=== PATIENT | male | born 1945 | race Caucasian/White ===

== ENCOUNTER → 2016-09-25 | Outpatient (CLI) | payer BC ==
[~2016-09-25] MED LIST: AMLO-114 PO; ASPI-232 PO; ATOR-26 PO; CHOL100010 PO; CLOP1TAB5 PO; CRG25 PO; FAMO20TA11 PO; HYDR25TA4 PO; LISI40TA PO; NITR0.4S UT; POTA10CA28 PO
== END | disposition home or self-care (01) ==
LOC: C.LABSPEC 12:36
PROVIDERS: ATTEND Internal Medicine
DX: Z12.11 Encounter for screening for malignant neoplasm of colon (principal)

== ENCOUNTER → 2017-01-24 | Outpatient (CLI) | payer BC ==
[2017-01-24 13:33] LABS: BASO % 0.2 %; BASO ABS # 0.02 K/uL (0-0.2); COMPLETE YES; HEMATOCRIT 40.1 % (42-52); IG% 0.2 %; LYMPH % 19.4 %; LYMPH ABS # 1.61 K/uL (1.2-3.4); MEAN CELL VOLUME 88.7 fL (80-100); MEAN CORPUSCULAR HEMOGLOBIN 30.1 pg (25-34); MEAN CORPUSCULAR HGB CONC 33.9 g/dl (32-36); MEAN PLATELET VOLUME 9.8 fL (7.4-10.4); MONO % 8.7 %; NEUT % 67.5 %; PLATELET COUNT 212 K/uL (130-400); RED BLOOD COUNT 4.52 M/uL (4.7-6.1)
[2017-01-24 14:02] LABS: ALKALINE PHOSPHATASE 111 U/L (45-117); ALT/SGPT 38 U/L (12-78); AST/SGOT 31 U/L (15-37); BLOOD UREA NITROGEN 32 mg/dl (7-18); BUN/CREATININE RATIO 15.9 (10-20); CALCIUM 9.1 mg/dl (8.5-10.1); CARBON DIOXIDE 26 mmol/L (21-32); CHLORIDE 108 mmol/L (98-107); CHOLESTEROL 123 mg/dl (0-200); CHOLESTEROL/HDL RATIO 3.3; GLUCOSE 92 mg/dl (70-99); HDL CHOLESTEROL 37 mg/dl; POTASSIUM 3.8 mmol/L (3.5-5.1); SODIUM 143 mmol/L (136-145)
[2017-01-24 14:08] LABS: ALB/GLOB RATIO 1.1 (0.9-2); TRIGLYCERIDES 140 mg/dl (0-150); VERY LOW DENSITY LIPOPROT CALC 28 mg/dl
== END | disposition home or self-care (01) ==
LOC: C.LABSPEC 12:13
PROVIDERS: ATTEND Internal Medicine
DX: I25.10 Atherosclerotic heart disease of native coronary artery without angina pectoris (principal); I12.9 Hypertensive chronic kidney disease with stage 1 through stage 4 chronic kidney disease, or unspecified chronic kidney disease; E78.5 Hyperlipidemia, unspecified; N18.9 Chronic kidney disease, unspecified

== ENCOUNTER → 2017-05-28 | Outpatient (CLI) | payer BC ==
[2017-05-28 13:36] LABS: BLOOD UREA NITROGEN 33 mg/dl (7-18); BUN/CREATININE RATIO 13.8 (10-20); CALCIUM 9.5 mg/dl (8.5-10.1); CARBON DIOXIDE 28 mmol/L (21-32); CHLORIDE 104 mmol/L (98-107); CHOLESTEROL 102 mg/dl (0-200); GLUCOSE 94 mg/dl (70-99); POTASSIUM 3.7 mmol/L (3.5-5.1); SODIUM 141 mmol/L (136-145); TRIGLYCERIDES 127 mg/dl (0-150); VERY LOW DENSITY LIPOPROT CALC 25 mg/dl
[2017-05-28 13:39] LABS: HDL CHOLESTEROL 34 mg/dl
== END | disposition home or self-care (01) ==
LOC: C.LABSPEC 12:25
PROVIDERS: ATTEND Internal Medicine
DX: I25.10 Atherosclerotic heart disease of native coronary artery without angina pectoris (principal); I12.9 Hypertensive chronic kidney disease with stage 1 through stage 4 chronic kidney disease, or unspecified chronic kidney disease; E78.5 Hyperlipidemia, unspecified; N18.9 Chronic kidney disease, unspecified

== ENCOUNTER → 2017-09-26 | Outpatient (CLI) | payer OTHER ==
[2017-09-26 13:16] LABS: BASO % 0.3 %; BASO ABS # 0.02 K/uL (0-0.2); EOS % 3.4 %; EOS ABS # 0.22 K/uL (0-0.5); HEMOGLOBIN 12.9 g/dL (14.0-18.0); LYMPH % 26.2 %; MEAN CELL VOLUME 88.8 fL (80-100); MEAN CORPUSCULAR HEMOGLOBIN 30.1 pg (25-34); MEAN CORPUSCULAR HGB CONC 33.9 g/dl (32-36); MEAN PLATELET VOLUME 9.4 fL (7.4-10.4); MONO % 7.9 %; MONO ABS # 0.51 K/uL (0.11-0.59); NEUT % 62.2 %; NEUT ABS # 4.04 K/uL (1.4-6.5); PLATELET COUNT 196 K/uL (130-400); RED CELL DISTRIBUTION WIDTH SD 45.6 fL (36.4-46.3); WHITE BLOOD COUNT 6.49 K/uL (4.8-10.8)
[2017-09-26 13:52] LABS: ALBUMIN 3.8 gm/dl (3.4-5.0); ALT/SGPT 36 U/L (12-78); AST/SGOT 26 U/L (15-37); BLOOD UREA NITROGEN 34 mg/dl (7-18); CARBON DIOXIDE 27 mmol/L (21-32); CREATININE 1.87 mg/dl (0.60-1.40); GLUCOSE 93 mg/dl (70-99); POTASSIUM 3.8 mmol/L (3.5-5.1); SODIUM 138 mmol/L (136-145)
[2017-09-26 14:04] LABS: ALKALINE PHOSPHATASE 111 U/L (45-117); CHOLESTEROL 101 mg/dl (0-200); LDL CHOLESTEROL (DIRECT) 41 mg/dl; TOTAL PROTEIN 7.8 gm/dl (6.4-8.2)
== END | disposition home or self-care (01) ==
LOC: C.LABSPEC 12:31
PROVIDERS: ATTEND Internal Medicine
DX: I25.10 Atherosclerotic heart disease of native coronary artery without angina pectoris (principal); I12.9 Hypertensive chronic kidney disease with stage 1 through stage 4 chronic kidney disease, or unspecified chronic kidney disease; E78.5 Hyperlipidemia, unspecified; N18.9 Chronic kidney disease, unspecified; R25.1 Tremor, unspecified

== ENCOUNTER → 2017-09-28 | Outpatient (CLI) | payer OTHER ==
--- NOTE | 2017-09-28 13:35 | DIAGNOSTIC IMAGING REPORT ---
CAROTID ARTERY ULTRASOUND CLINICAL HISTORY: CAROTID ARTERY STENOSIS,PAD B/L LEGS COMPARISON STUDY: Carotid ultrasound December 17, 2014. TECHNIQUE: Real-time, grayscale, and color Doppler sonography of the carotid and vertebral arteries was performed. Images were viewed in the transverse and longitudinal planes. FINDINGS: There is extensive atherosclerotic plaque. Velocity measurements are listed below. COMMON CAROTID PEAK SYSTOLIC VELOCITY (CM/S): RIGHT 77 LEFT 85 ICA PEAK SYSTOLIC VELOCITY (CM/S): RIGHT 170 LEFT 105 Systolic ratio between the right internal to common carotid artery is mildly elevated at 2.2. Antegrade flow is seen in the vertebral arteries. The external carotid arteries are patent. Blood pressure in the right arm measured 139/64. Blood pressure in the left arm measured 132/76. IMPRESSION: 1. Sonographic findings suggestive of 50-69% stenosis of the proximal right internal carotid artery which is similar to exam of December 17, 2014. 2. No evidence of a hemodynamically significant stenosis within the left internal carotid artery. Electronically signed by: Mariano Jaime M.D. 09/28/2017 1:33 PM Dictated Date/Time: 09/28/2017 1:31 PM
--- NOTE | 2017-09-28 13:40 | DIAGNOSTIC IMAGING REPORT ---
ARTERIAL DOPPLER ULTRASOUND LOWER EXTREMITIES BILATERAL CLINICAL HISTORY: Peripheral arterial disease. COMPARISON STUDY: October 2010 FINDINGS: Brachial arm systolic pressures were 125 mmHg on the right and 122 mmHg on the left. Posterior tibial systolic pressures were 1 37 mmHg the right and 1 17 mmHg on the left. Dorsalis pedis systolic pressures are 138 mmHg the right and 134 mmHg on the left. These measurements yield normal bilateral ankle brachial indices of 1.1. There is biphasic flow within the common femoral superficial femoral popliteal anterior tibial posterior tibial and peroneal arteries bilaterally. No high velocity jets were visualized. IMPRESSION: No evidence of lower extremity arterial stenosis. Electronically signed by: Malcom Scherer M.D. 09/28/2017 1:39 PM Dictated Date/Time: 09/28/2017 1:36 PM
== END | disposition home or self-care (01) ==
LOC: C.ULTR 11:38
PROVIDERS: ATTEND Internal Medicine
DX: I73.9 Peripheral vascular disease, unspecified (principal); I65.29 Occlusion and stenosis of unspecified carotid artery

== ENCOUNTER 2023-07-18 16:10 | Inpatient (IN) ==
--- NOTE | 2023-07-18 16:14 | Emergency Department Note ---
Impression & Plan Weakness, Dementia, CKD (chronic kidney disease) stage 3, GFR 30-59 ml/min, COVID-19, Hypophosphatemia, Elevated CPK ED Provider Note NAME: VIDAL BLANCHARD AGE: 77 SEX: M ARRIVES VIA: Ambulance INFORMANT: Patient ED PROVIDER(S): Mani Ba MD CHIEF COMPLAINT: Weakness PLAN: Disposition: Admit MEDICAL DECISION MAKING: The patient is a pleasant 77-year-old gentleman with past medical history of dementia, CAD, hypertension, hyperlipidemia, peripheral neuropathy/neurologic gait dysfunction/ambulatory dysfunction using home walker, bilateral foot drop relying on bilateral ankle braces who presents emergency department via EMS and then coming by his for evaluation of generalized weakness and fatigue worsening over the past 24 hours in the setting of several days of mild cough and congestion. Patient's reports that he "fell" 3 times today which she describes as him slipping with his feet on the floor when attempting to get up. She does acknowledge that in all of these moments such as when he got out of bed and attempted to use the restroom he was not using his braces for his foot drop. She reports that usually he gets himself but feels that he did not do this because of his weakness. She also reports he he has had several episodes of urinary continence today which is not normal for him. The patient is a poor historian and has no complaints. He is alert to self, time and place but is confused to situation and not entirely sure why he was sent to the emergency department. On my evaluation the patient is well-appearing in no distress, afebrile stable vital signs. He has no focal neurologic deficits. Head is atraumatic. EKG without overt acute ischemia. CXR negative for acute cardiopulmonary process per my personal preliminary review/interpretation. WBC, H/H and platelets within normal limits. Mild lymphopenia is noted at 1.1. Chemistry without metabolic acidosis. Creatinine 2.0, similar to prior values in setting of CKD. Calcium is 10.9 consistent with patient's clinically dry appearance. Phosphorus is 1.1 with IV repletion initiated. LFTs are unremarkable. CPK is mildly elevated at 741. High-sensitivity troponin 30, nonspecific in the setting of known CAD. Lipase not elevated. UA demonstrates trace ketones consistent with patient's clinical dry appearance. WBCs and 1+ bacteria noted however with epithelial cells present. Respiratory viral panel/[employer] was positive for COVID-19. Patient was reevaluated patient's expresses concern that she is unable to manage him at home as it required several of them to even get him in the car to come to the hospital and here it took both the patient's and his RN to lift him to be able to sit on the bedside commode. She is concerned that he would be at risk for falls and does agree with plan for admission for further management. Case was discussed with Dr. Meyers, [facility] hospitalist, who will evaluate the patient for admission. Triage Nursing notes reviewed and agree them. Prior/external medical records reviewed Vital Signs: reviewed Differential diagnosis: Infection, dehydration, metabolic abnormality, hypo/hyperglycemia, electrolyte disturbance, anemia, hypoxia, cardiac sources, intracerebral event, toxicologic, neurologic, as well as other pathologies. ER treatment provided: See below. Diagnostics interpreted by me: ECG: Sinus rhythm with first-degree block, 65 bpm, no ectopy, no overt ST elevation or depression, QTc 438, QRS 90 Cardiac Monitoring: An order for continuous cardiac monitoring was placed and demonstrated Sinus rhythm with first-degree block, 65 bpm, no ectopy. Laboratory studies: See below Imaging studies: See below Consultation(s): Case was discussed with Dr. Meyers, [facility] hospitalist, who will evaluate the patient for admission. HPI: The patient is a pleasant 77-year-old gentleman with past medical history of dementia, CAD, hypertension, hyperlipidemia, peripheral neuropathy/neurologic gait dysfunction/ambulatory dysfunction using home walker, bilateral foot drop relying on bilateral ankle braces who presents emergency department via EMS and then coming by his for evaluation of generalized weakness and fatigue worsening over the past 24 hours in the setting of several days of mild cough and congestion. Patient's reports that he "fell" 3 times today which she describes as him slipping with his feet on the floor when attempting to get up. She does acknowledge that in all of these moments such as when he got out of bed and attempted to use the restroom he was not using his braces for his foot drop. She reports that usually he gets himself but feels that he did not do this because of his weakness. She also reports he he has had several episodes of urinary continence today which is not normal for him. The patient is a poor historian and has no complaints. He is alert to self, time and place but is confused to situation and not entirely sure why he was sent to the emergency department. ROS: See above HPI for pertinent positives & negatives. A total of 10 systems reviewed and were otherwise negative. VITALS:See Below PHYSICAL EXAMINATION: GENERAL: Awake, alert, well-appearing, in no distress HENT: Normocephalic, atraumatic. Oropharynx with dry mucous membranes and otherwise unremarkable. EYES: Normal conjunctiva. Sclera non-icteric. NECK: Supple. No nuchal rigidity. FROM. No JVD. RESPIRATORY: Clear to auscultation. CARDIAC: Regular rate, normal rhythm. Extremities warm and well perfused. Pulses equal. ABDOMEN: Soft, non-distended. No tenderness to palpation. No rebound or guarding. No masses. RECTAL: Deferred. MUSCULOSKELETAL: Chest examination reveals no tenderness. The back is symmetrical on inspection without obvious abnormality. There is no CVA tenderness to palpation. No joint edema. LOWER EXTREMITIES: Calves are equal size bilaterally and non-tender. No edema. No discoloration. NEURO: Alert to self, place. Mild confusion to situation. No focal sensory or motor deficits noted. SKIN: No rash or jaundice noted. Mani Ba MD Past Med/Surg History Medical History Mild cognitive impairment Postoperative atrial fibrillation (~2020) CKD (chronic kidney disease) stage 3, GFR 30-59 ml/min History of myocardial infarction Complex sleep apnea syndrome H/O: stroke Peripheral neuropathy Essential tremor Aortic stenosis Atherosclerotic heart disease of [place] coronary artery without angina pectoris Bicuspid aortic valve Carotid atherosclerosis Dyslipidemia Hypertension Surgical History S/P aortic valve replacement with bioprosthetic valve February 2021 Hx of CABG February 2021 S/P ascending aortic replacement February 2021 S/P cholecystectomy History of intravascular stent placement S/P partial thyroidectomy Previous back surgery H/O heart artery stent Family History Mother Myocardial infarction Father Black lung Brother Myocardial infarction Denies family history of Ovarian cancer Prostate cancer Breast cancer Colorectal cancer Social History Smoking Status: Never smoker Second Hand Exposure: No; Do You Dip or Chew Tobacco: No; Hx Alcohol Use: No Hx Substance Use: No Preferred Language: Bengali Beliefs That Will Affect Care: None marital status: Current Living Situation: Spouse current occupational status: retired current occupation: Retired Feels Safe at Home: Yes Childhood Exposure to Second-Hand Smoke: No Dental Care, Regularly: No Physical Activity Frequency: Daily Seatbelt Use: always Sunscreen Use: Yes Allergies Allergies Allergy/AdvReac Type Severity Reaction Status Date / Time No Known Allergies Allergy Verified 07/18/23 17:07 Home Meds Home Medications Medication Instructions Recorded Confirmed ascorbic acid (vitamin C) 250 mg 250 mg PO DAILY 04/26/21 07/18/23 tablet famotidine 20 mg tablet 20 mg PO DAILY PRN heartburn 07/06/21 07/18/23 aspirin 81 mg tablet,delayed 81 mg PO DAILY 10/17/21 07/18/23 release cyanocobalamin (vitamin B-12) 1,000 mcg PO DAILY 10/17/21 07/18/23 1,000 mcg tablet (Vitamin B-12) ferrous sulfate 325 mg (65 mg 325 mg PO DAILY 01/24/22 07/18/23 iron) tablet,delayed release magnesium oxide 400 mg PO DAILY 08/03/22 07/18/23 Previous Rx's Medication Instructions Recorded losartan 50 mg tablet 50 mg PO BID #180 tabs 09/14/22 allopurinol 300 mg tablet 300 mg PO DAILY #90 tabs 01/30/23 amlodipine 5 mg tablet 5 mg PO DAILY #90 tabs 02/13/23 propranolol 40 mg tablet 40 mg PO BID #180 tabs 03/08/23 atorvastatin 80 mg tablet 80 mg PO QPM #90 tabs 04/02/23 escitalopram oxalate 10 mg tablet 10 mg PO DAILY #90 tabs 06/13/23 calcitriol 0.25 mcg capsule 0.25 mcg PO 2XWK #90 caps 06/22/23 dapagliflozin propanediol 10 mg 10 mg PO DAILY #90 tabs 06/22/23 tablet Results & Data (ED) Vital Signs Vital Signs - 24 hr 07/18/23 16:27 07/18/23 16:34 Temperature 37 C Temperature Source Oral Pulse Rate 83 Respiratory Rate 18 Blood Pressure 137/80 Blood Pressure Mean 99 Pulse Oximetry 93 94 Oxygen Delivery Method Room Air Room Air Sepsis Recent Fever Within 48 Hours No Sepsis New/Unexplained Change in Mental Status Yes Sepsis Action Taken by Nursing No Action Required Laboratory Data Attestation: I reviewed the patient's lab results. 07/18/23 16:07 07/18/23 16:07 Lab Results 07/18/23 07/18/23 Range/Units 16:07 16:27 WBC 8.67 (4.8-10.8) K/ul RBC 4.58 L (4.70-6.10) M/uL Hgb 14.3 (14.0-18.0) g/dl Hct 42.4 (42.0-52.0) % MCV 92.6 (80.0-100.0) fL MCH 31.2 (25.0-34.0) pg MCHC 33.7 (32.0-36.0) g/dL RDW Std Deviation 48.0 H (36.4-46.3) fL RDW Coeff of Amor 14.4 (11.5-14.5) % Plt Count 143 (130-400) K/uL MPV 9.8 (9.4-12.4) fL Immature Gran % (Auto) 0.2 % Neut % (Auto) 70.2 % Lymph % (Auto) 13.0 % [place] % (Auto) 14.2 % Eos % (Auto) 2.1 % Baso % (Auto) 0.3 % Neut # (Auto) 6.08 (1.40-6.50) K/uL Lymph # (Auto) 1.13 L (1.20-3.40) K/uL [place] # (Auto) 1.23 H (0.11-0.59) K/uL Eos # (Auto) 0.18 (0.00-0.50) K/uL Baso # (Auto) 0.03 (0.00-0.20) K/uL Immature Gran # (Auto) 0.02 (0.01-0.20) K/uL PT 11.7 (9.0-12.0) Seconds INR 1.1 (0.9-1.1) Sodium 141 (136-145) mmol/L Potassium 4.2 (3.5-5.1) mmol/L Chloride 105 (98-107) mmol/L Carbon Dioxide 29 (21-32) mmol/L Anion Gap 7 (3-11) BUN 21 (6-23) mg/dl Creatinine 2.00 H (0.6-1.4) mg/dl Est Cr Clr Drug Dosing 32.6 ml/min Est GFR ( Amer) 36.0 ml/min Est GFR (Non-Af Amer) 31.0 ml/min BUN/Creatinine Ratio 10.5 (10-20) Glucose 90 (70-99(Fasting)) mg/dl Calcium 10.9 H (8.6-10.3) mg/dl Phosphorus 1.1 L* (2.5-4.9) mg/dl Magnesium 2.0 (1.7-2.4) mg/dl Total Bilirubin 1.0 (0.2-1.0) mg/dl AST 30 (13-39) U/L ALT 17 (7-52) U/L Alkaline Phosphatase 119 H (34-104) U/L Total Creatine Kinase 741 H (30-223) U/L Troponin I High Sens 30.3 H (0-20) pg/ml Total Protein 7.6 (6.0-8.3) gm/dl Albumin 4.5 (3.4-5.0) gm/dl Globulin 3.1 (2.5-4.0) gm/dl Albumin/Globulin Ratio 1.5 (0.9-2) Lipase 61 (11-82) U/L Procalcitonin 0.19 (0-0.5) ng/ml Administered Medications Atorvastatin Calcium (Atorvastatin 40 Mg Tab) 80 mg PO QPM MARK Stop: 08/17/23 20:59 Last Admin: 07/19/23 00:46 Dose: 80 mg Documented By: ETELVINA Heparin Sodium (Porcine) (Heparin Sod 5,000 Unit/0.5 Ml Vial) 5,000 units SQ Q8 MARK Stop: 08/17/23 21:59 Last Admin: 07/19/23 00:46 Dose: 5,000 units Documented By: ETELVINA Propranolol HCl (Propranolol Hcl 20 Mg Tab) 40 mg PO BID MARK Stop: 08/17/23 20:59 Last Admin: 07/19/23 00:45 Dose: 40 mg Documented By: ETELVINA Discontinued Medications Sodium Chloride (Nss) 500 mls @ 999 mls/hr IV .Q31M STA Stop: 07/18/23 16:55 Last Infusion: 07/18/23 18:26 Dose: Infused Documented By: Admin: 07/18/23 17:47 Dose: 999 mls/hr Documented By: AURORA Potassium Phosphate 9 mmol/ (Sodium Chloride) 253 mls @ 88 mls/hr IV ONE ONE Stop: 07/18/23 21:22 Last Infusion: 07/19/23 00:23 Dose: Infused Documented By: Admin: 07/18/23 19:09 Dose: 88 mls/hr Documented By: AURORA Potassium Phosphate (Pot Phosphate Monobasic W/ Sod Tab) 2 tab PO NOW STA Stop: 07/18/23 17:59 Last Admin: 07/18/23 19:07 Dose: 2 tab Documented By: AURORA Imaging Data Radiologist's Impression: Head CT 07/18/23 16:25 CT SCAN OF THE BRAIN WITHOUT IV CONTRAST CLINICAL HISTORY: Falls. Generalized weakness. COMPARISON STUDY: CT of the brain dated 10/17/2021. TECHNIQUE: Unenhanced axial CT scan of the brain is performed from the vertex to the skull base. A dose lowering technique was utilized adhering to the principles of ALARA. CT DOSE: 547.75 mGy.cm FINDINGS: Brain parenchyma: There is age-related involutional change noting advanced subcortical and periventricular microangiopathic disease. There is no hemorrhage, mass effect, or evidence of acute territorial ischemia by CT criteria. Sidhu-white matter differentiation is preserved. No extra-axial fluid collection is seen. Ventricles, sulci, cisterns: Prominent secondary to involutional change. Intracranial vasculature: There is atherosclerotic calcification of the cavernous carotid and vertebral arteries. Calvarium: The skeletal structures are osteopenic. No depressed calvarial fracture is seen. Sinuses and mastoids: The visualized paranasal sinuses are clear. The mastoid air cells are well pneumatized. Orbits: The bony orbits are grossly intact. IMPRESSION: There is no hemorrhage, mass effect, or evidence of acute territorial ischemia by CT criteria. ACT 112: Negative or not required by law. Electronically signed by: Daniel Ward M.D. 07/18/2023 5:01 PM Chest X-Ray 07/18/23 16:26 XR chest 1V portable HISTORY: Chest pain, nonspecific COMPARISON: Chest 10/17/2021. FINDINGS: No pneumothorax. No pleural effusions. Small left basilar linear densities persist and favor subsegmental atelectasis or scarring. Otherwise, the lungs are clear. No evidence for pulmonary edema. The heart remains top normal in size. Poststernotomy changes and a cardiac valve prosthesis are again noted. There are calcifications within the aortic knob. No acute fractures identified. There is a mildly tortuous thoracic aorta, unchanged. IMPRESSION: No significant change compared to the prior study. No acute process. ACT 112: Negative or not required by law. Electronically signed by: Art Henson M.D. 07/18/2023 4:54 PM KUB X-Ray 07/18/23 16:47 KUB CLINICAL HISTORY: Generalized abdominal pain. Constipation. FINDINGS: 3 AP, portable, supine abdominal radiographs are correlated with abdominal ultrasound dated 10/22/2006. There is a nonobstructed abdominal bowel gas pattern. Moderate fecal retention is seen throughout the colon. No evidence of intraperitoneal free air is seen on these supine images. Cholecystectomy clips are present in the right upper quadrant. There are no abnormal abdominal calcifications. Small phleboliths are seen in the pelvis. The skeletal structures are osteopenic and appear intact. Postsurgical and spondylotic change is noted in the lumbar spine. IMPRESSION: No acute abnormality is identified. Electronically signed by: Daniel Ward M.D. 07/18/2023 6:07 PM Pelvis X-Ray 07/18/23 16:47 SINGLE VIEW PELVIS CLINICAL HISTORY: Fall. Pain. FINDINGS: AP, portable, supine pelvic radiograph is correlated with radiographs of the left femur dated 12/12/2021. The skeletal structures are osteopenic. There is no radiographic evidence of acute fracture involving the hips or bony pelvis. Mild/moderate arthritic change and joint space narrowing is seen in the hips. Degenerative sclerosis is noted in the sacroiliac joints and pubic symphysis. Spondylotic and postsurgical change is seen in the partially imaged lumbar spine. The overlying soft tissues are within normal limits. Small phleboliths are noted in the pelvis. IMPRESSION: No acute bony abnormality is identified. Electronically signed by: Daniel Ward M.D. 07/18/2023 7:06 PM Discharge Plan Visit Data Chief Complaint: Weakness Stated Complaint: INCREASED WEAKNESS ED Provider: Cross,Mani E Discharge Problem: Weakness, Dementia, CKD (chronic kidney disease) stage 3, GFR 30-59 ml/min, COVID-19, Hypophosphatemia, Elevated CPK Patient Disposition: Admitted As Inpatient Discharge Instructions Interventions: ED Discharge Assessment Last Done: 07/18/23 20:24 Discharge Problem: Dementia Qualifiers: Dementia type: unspecified type Dementia severity: unspecified severity D ementia behavioral or psychological symptom: without behavioral, psychotic, or mood disturbance or anxiety Qualified Code(s): F03.90 - Unspecified dementia, unspecified severity, without behavioral disturbance, psychotic disturbance, mood disturbance, and anxiety CKD (chronic kidney disease) stage 3, GFR 30-59 ml/min Qualifiers: Chronic kidney disease stage 3 subtype: unspecified whether 3a or 3b Qualified Code(s): N18.30 - Chronic kidney disease, stage 3 unspecified
[2023-07-18] MEDS ORDERED: SODIUM CHLORIDE 0.9% 500 ML IV STA (16:25)
--- NOTE | 2023-07-18 16:55 | XRay Report ---
XR chest 1V portable HISTORY: Chest pain, nonspecific COMPARISON: Chest 10/17/2021. FINDINGS: No pneumothorax. No pleural effusions. Small left basilar linear densities persist and favo r subsegmental atelectasis or scarring. Otherwise, the lungs are clear. No evidence for pulmonary tanya ma. The heart remains top normal in size. Poststernotomy changes and a cardiac valve prosthesis are a gain noted. There are calcifications within the aortic knob. No acute fractures identified. There is a mildly tortuous thoracic aorta, unchanged. IMPRESSION: No significant change compared to the prior study. No acute process. ACT 112: Negative or not required by law. Electronically signed by: Art Henson M.D. 07/18/2023 4:54 PM
[2023-07-18 16:56] LABS: Appearance Urine Cloudy (Clear); Bacteria Urine Automated 1+ (Negative); Bilirubin Urine Negative (Negative); Blood Urine Negative (Negative); Color Urine Yellow; Epithelial Cell Urine Auto >30 /lpf (0-5); Glucose Urine UA Negative (Negative); Ketones Urine Trace (Negative); Leukocyte Esterase Urine Negative (Negative); Nitrite Urine Negative (Negative); Protein Urine 2+ (Negative); RBC Urine Automated 0-4 /hpf (0-4); Specific Gravity Urine 1.021 (1.000-1.030); Urobilinogen Urine Negative (Negative)
[2023-07-18 16:57] LABS: Basophils # (auto) 0.03 K/uL (0.00-0.20); Basophils % (auto) 0.3 %; Eosinophils # (auto) 0.18 K/uL (0.00-0.50); Eosinophils % (auto) 2.1 %; Hematocrit (blood only) 42.4 % (42.0-52.0); Hemoglobin 14.3 g/dl (14.0-18.0); Immature Granulocytes # (auto) 0.02 K/uL (0.01-0.20); Immature Granulocytes % (auto) 0.2 %; Lymphocytes # (auto) 1.13 K/uL (1.20-3.40); Mean Corpuscular Hemoglobin 31.2 pg (25.0-34.0); Mean Corpuscular Hgb Conc 33.7 g/dL (32.0-36.0); Mean Corpuscular Volume 92.6 fL (80.0-100.0); Mean Platelet Volume 9.8 fL (9.4-12.4); Monocytes # (auto) 1.23 K/uL (0.11-0.59); Monocytes % (auto) 14.2 %; Neutrophils # (auto) 6.08 K/uL (1.40-6.50); Neutrophils % (auto) 70.2 %; Platelet Count 143 K/uL (130-400); RDW Coefficient of Variation 14.4 % (11.5-14.5); Red Blood Count 4.58 M/uL (4.70-6.10); White Blood Count 8.67 K/ul (4.8-10.8)
--- NOTE | 2023-07-18 17:03 | CT Scan Report ---
CT SCAN OF THE BRAIN WITHOUT IV CONTRAST CLINICAL HISTORY: Falls. Generalized weakness. COMPARISON STUDY: CT of the brain dated 10/17/2021. TECHNIQUE: Unenhanced axial CT scan of the brain is performed from the vertex to the skull base. A do se lowering technique was utilized adhering to the principles of ALARA. CT DOSE: 547.75 mGy.cm FINDINGS: Brain parenchyma: There is age-related involutional change noting advanced subcortical and periventri cular microangiopathic disease. There is no hemorrhage, mass effect, or evidence of acute territorial ischemia by CT criteria. Sidhu-white matter differentiation is preserved. No extra-axial fluid collec tion is seen. Ventricles, sulci, cisterns: Prominent secondary to involutional change. Intracranial vasculature: There is atherosclerotic calcification of the cavernous carotid and vertebr al arteries. Calvarium: The skeletal structures are osteopenic. No depressed calvarial fracture is seen. Sinuses and mastoids: The visualized paranasal sinuses are clear. The mastoid air cells are well pneu matized. Orbits: The bony orbits are grossly intact. IMPRESSION: There is no hemorrhage, mass effect, or evidence of acute territorial ischemia by CT adela gorman. ACT 112: Negative or not required by law. Electronically signed by: Daniel Ward M.D. 07/18/2023 5:01 PM
[2023-07-18 17:07] LABS: Sperm Urine Present (None Prsent)
[2023-07-18 17:13] LABS: BUN Creatinine Ratio 10.5 (10-20); Calcium 10.9 mg/dl (8.6-10.3); Creatinine Clr Calc Pharmacy 32.6 ml/min; Potassium 4.2 mmol/L (3.5-5.1)
[2023-07-18 17:19] LABS: Troponin I High Sensitivity 30.3 pg/ml (0-20)
[2023-07-18 17:23] LABS: INR 1.1 (0.9-1.1); Prothrombin Time 11.7 Seconds (9.0-12.0)
[2023-07-18 17:42] LABS: Albumin Globulin Ratio 1.5 (0.9-2); Albumin Level 4.5 gm/dl (3.4-5.0); Globulin 3.1 gm/dl (2.5-4.0); Phosphorus 1.1 mg/dl (2.5-4.9); Total Protein 7.6 gm/dl (6.0-8.3)
[2023-07-18 17:42] LABS: Adenovirus PCR Not Detected (NotDetected); Bordetella parapertussis PCR Not Detected (NotDetected); Bordetella pertussis PCR Not Detected (NotDetected); Chlamydia pneumoniae PCR Not Detected (NotDetected); Coronavirus 229E PCR Not Detected (NotDetected); Coronavirus HKU1 PCR Not Detected (NotDetected); Coronavirus NL63 PCR Not Detected (NotDetected); Coronavirus OC43PCR Not Detected (NotDetected); Human Metapneumovirus PCR Not Detected (NotDetected); Influenza A PCR Not Detected (NotDetected); Influenza B PCR Not Detected (NotDetected); Mycoplasma pneumoniae PCR Not Detected (NotDetected); Parainfluenza Virus 1 PCR Not Detected (NotDetected); Parainfluenza Virus 2 PCR Not Detected (NotDetected); Parainfluenza Virus 3 PCR Not Detected (NotDetected); Parainfluenza Virus 4 PCR Not Detected (NotDetected); Respiratory Syncytial VirusPCR Not Detected (NotDetected); Rhinovirus/Enterovirus PCR Not Detected (NotDetected)
[2023-07-18 17:52] LABS: Coronavirus CoV-2 (COVID19)PCR DETECTED (NotDetected)
[2023-07-18] MEDS ORDERED: POTASSIUM PHOS 3 MMOL/1 ML INFUSION IV STA (17:58)
[2023-07-18] MEDS ORDERED: POT PHOSPHATE MONOBASIC W/ SOD TAB PO STA (17:58)
--- NOTE | 2023-07-18 18:08 | XRay Report ---
KUB CLINICAL HISTORY: Generalized abdominal pain. Constipation. FINDINGS: 3 AP, portable, supine abdominal radiographs are correlated with abdominal ultrasound dated 10/22/2006. There is a nonobstructed abdominal bowel gas pattern. Moderate fecal retention is seen th roughout the colon. No evidence of intraperitoneal free air is seen on these supine images. Cholecyst ectomy clips are present in the right upper quadrant. There are no abnormal abdominal calcifications. Small phleboliths are seen in the pelvis. The skeletal structures are osteopenic and appear intact. Postsurgical and spondylotic change is noted in the lumbar spine. IMPRESSION: No acute abnormality is identified. Electronically signed by: Daniel Ward M.D. 07/18/2023 6:07 PM
[2023-07-18] MEDS ORDERED: POTASSIUM PHOSPHATE 9 MMOL in SODIUM CHLORIDE 0.9% 250 ML IV ONE (18:30)
--- NOTE | 2023-07-18 18:38 | History & Physical Report ---
Date of Service July 18, 2023 Assessment & Plan (1) COVID-19: Plan: Lyle is a 77-year-old male with a past medical history of CKD, aortic valve replacement, complex sleep apnea, carotid stenosis, hypertension, peripheral neuropathy, depression, essential tremor, and severe peripheral neuropathy with foot drop, and cognitive impairment with no acute changes on outpatient MRI but with small vessel ischemic changes General atrophy and ex vacuo ventriculomegaly noted and additional to an old lacunar infarct, who presents with weakness causing his home needs to exceed he care ability of his family with 3 days of COVID symptoms and he was COVID-positive on admission. He is also hypophosphatemic with a mild prerenal azotemia versus RANI. Acute weakness, suspect 2/2 COVID without hypoxia 3 days of COVID symptoms, COVID-positive on admission No hypoxia. Steroids and remdesivir are not indicated. CRP pending No urinary symptoms, UA contaminated appearing. Repeat cath specimen pending, defer antibiotics unless cath urine is infected appearing No chest pain, high sensitive troponin 30 point 3 repeat pending. Suspect demand with poor intake (2) CAD (coronary artery disease): Plan: CAD/CABG/AVR History of two-vessel bypass graft in 2020 History of bioprosthetic AVR History of ascending aorta replacement with Gelweave graft. Follows as outpatient with stable interval CTAs last 03/30/2023 Troponin trended, suspect demand. No clinical symptoms of ACS. EKG without acute ischemic change No evidence of acute CHF. Last EF 55-60% 202122. Grade 2 diastolic dysfunction. Continue aspirin and statin. Losartan temporarily held pending creatinine stability, otherwise continue home antihypertensives Patient is on SGLT2, no history of DM last A1c normal. BSG on BMP daily, no indication for SSI/DM2 diet at this time (3) Rhabdomyolysis: Plan: Mild rhabdomyolysis with CK7 41 in the setting of stasis and difficulty ambulating likely 2/2 COVID Gentle fluids, cautious aggressive caution aggressive fluids and fluid overload with history of grade 2 diastolic CHF. Hold IVF for leg edema/hypoxia. Chest x-ray is without any evidence of pulmonary edema (4) CKD (chronic kidney disease) stage 3, GFR 30-59 ml/min: Plan: CKD,? RANI/prerenal azotemia Baseline creatinine appears approximately 1.61.86, although has been as high as 2.52.67 in the recent past Trend daily Received 500 cc NSS in the ER. Will defer additional fluids as phosphate repletion comes in a large volume of fluid as well. No evidence of hypoxia or CHF; (5) Dementia: Plan: Cognitive decline With history of gradual cognitive decline, small vessel disease, and ex vacuo change Fall precautions Plan Chronic stable problems GERD: Famotidine 20 mg daily as needed Gout: Continue allopurinol Complex sleep apnea: CPAP nightly DVT prophylaxis: Heparin Disposition: Medical telemetry for troponin and cardiac trend Diet: Heart healthy CODE STATUS: Full per pt and family History of Present Illness Primary Care Provider: Evette Schuler MD Dry nonproductive cough x3 days Today was so week he could not stand up to get to use his walker or go to the bathroom. Slid off toilet (did not hit his head) and has no leg strength. reports she had to use a blanket to drag him into the living room. Progressively weaker throughout the day, and then felt he was too weak for her to handle safetly at home and presented to the ER. 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 No chest pain or chest pressure. Reports' heart and blood pressure have been great, several med adjustments but doing well with these.;' ~3 days of dry cough. +runny nose. No nause or vomiting. No diarrhea No dysuria. No polyuria No fevers or chills. No night sweats Took all medications this morning. Medical History: Reviewed Medications: Reviewed Surgical History: Reviewed Family history: Reviewed Allergies: Reviewed Social History: No tobacco, etoh. Code Status: FUll Code Allergies Allergy/AdvReac Type Severity Reaction Status Date / Time No Known Allergies Allergy Verified 07/18/23 17:07 Home Medications Medication Instructions Recorded Confirmed Type ascorbic acid (vitamin C) 250 mg 250 mg PO DAILY 04/26/21 07/18/23 History tablet famotidine 20 mg tablet 20 mg PO DAILY PRN heartburn 07/06/21 07/18/23 History aspirin 81 mg tablet,delayed 81 mg PO DAILY 10/17/21 07/18/23 History release cyanocobalamin (vitamin B-12) 1,000 mcg PO DAILY 10/17/21 07/18/23 History 1,000 mcg tablet (Vitamin B-12) ferrous sulfate 325 mg (65 mg 325 mg PO DAILY 01/24/22 07/18/23 History iron) tablet,delayed release magnesium oxide 400 mg PO DAILY 08/03/22 07/18/23 History losartan 50 mg tablet 50 mg PO BID #180 tabs 09/14/22 07/18/23 Rx allopurinol 300 mg tablet 300 mg PO DAILY #90 tabs 01/30/23 07/18/23 Rx amlodipine 5 mg tablet 5 mg PO DAILY #90 tabs 02/13/23 07/18/23 Rx propranolol 40 mg tablet 40 mg PO BID #180 tabs 03/08/23 07/18/23 Rx atorvastatin 80 mg tablet 80 mg PO QPM #90 tabs 04/02/23 07/18/23 Rx escitalopram oxalate 10 mg tablet 10 mg PO DAILY #90 tabs 06/13/23 07/18/23 Rx calcitriol 0.25 mcg capsule 0.25 mcg PO 2XWK #90 caps 06/22/23 07/18/23 Rx dapagliflozin propanediol 10 mg 10 mg PO DAILY #90 tabs 06/22/23 07/18/23 Rx tablet Past Med/Surg History Medical History Mild cognitive impairment Postoperative atrial fibrillation (~2020) CKD (chronic kidney disease) stage 3, GFR 30-59 ml/min History of myocardial infarction Complex sleep apnea syndrome H/O: stroke Peripheral neuropathy Essential tremor Aortic stenosis Atherosclerotic heart disease of [place] coronary artery without angina pectoris Bicuspid aortic valve Carotid atherosclerosis Dyslipidemia Hypertension Surgical History S/P aortic valve replacement with bioprosthetic valve February 2021 Hx of CABG February 2021 S/P ascending aortic replacement February 2021 S/P cholecystectomy History of intravascular stent placement S/P partial thyroidectomy Previous back surgery H/O heart artery stent Family History Mother Myocardial infarction Father Black lung Brother Myocardial infarction Denies family history of Ovarian cancer Prostate cancer Breast cancer Colorectal cancer Social History Smoking Status: Never smoker Second Hand Exposure: No; Do You Dip or Chew Tobacco: No; Hx Alcohol Use: No Hx Substance Use: No Preferred Language: Azerbaijani Beliefs That Will Affect Care: None marital status: Current Living Situation: Spouse current occupational status: retired current occupation: Retired Feels Safe at Home: Yes Childhood Exposure to Second-Hand Smoke: No Dental Care, Regularly: No Physical Activity Frequency: Daily Seatbelt Use: always Sunscreen Use: Yes Physical Exam Physical Exam: General: Not oriented to year/month. NAD. Cooperative. HEENT: Atraumatic, normocephalic. Patient/hearing grossly intact Pulm: CTAB A&P. -wheezes, -rales, -rhonchi. Symmetrical chest rise. No increased work of breathing. No respiratory distress. Cardiac: RRR, -mrg. Radial pulses intact and symmetrical. Abdominal: Nontender, nondistended, soft. BS present. Extremities: Warm, dry. No pitting of the Results & Data Results & Data Vital Signs (Past 12 Hours) Vital Signs Temp Pulse Resp BP Pulse Ox O2 Del Method 07/18/23 16:34 94 Room Air 07/18/23 16:27 37 C 83 18 137/80 93 Room Air PG Care Time/CCT Total # of Minutes Spent Total Time Spent with Patient: Total time spent is greater than 50% in coordination of care (as documented) at patient's floor/unit and/or counseling patient: Coding Level of Care Code 50297 INT INP/OBS CARE 2/55MIN Diagnoses COVID-19 U07.1 CAD (coronary artery disease) I25.10 Rhabdomyolysis M62.82 CKD (chronic kidney disease) stage 3, GFR 30-59 ml/min N18.30 Chronic kidney disease stage 3 subtype: unspecified whether 3a or 3b Dementia F03.90 Dementia behavioral or psychological symptom: without behavioral, psychotic, or mood disturbance or anxiety Dementia severity: unspecified severity Dementia type: unspecified type (4) CKD (chronic kidney disease) stage 3, GFR 30-59 ml/min Chronic kidney disease stage 3 subtype: unspecified whether 3a or 3b Qualifi ed Code(s): N18.30 - Chronic kidney disease, stage 3 unspecified (5) Dementia Dementia behavioral or psychological symptom: without behavioral, psychotic, or mood disturbance or anxiety Dementia severity: unspecified severity Dementia type: unspecified type Qualified Code(s): F03.90 - Unspecified dementia, unspecified severity, without behavioral disturbance, psychotic disturbance, mood disturbance, and anxiety
--- NOTE | 2023-07-18 19:08 | XRay Report ---
SINGLE VIEW PELVIS CLINICAL HISTORY: Fall. Pain. FINDINGS: AP, portable, supine pelvic radiograph is correlated with radiographs of the left femur enrrique ed 12/12/2021. The skeletal structures are osteopenic. There is no radiographic evidence of acute frac ture involving the hips or bony pelvis. Mild/moderate arthritic change and joint space narrowing is s een in the hips. Degenerative sclerosis is noted in the sacroiliac joints and pubic symphysis. Spondy lotic and postsurgical change is seen in the partially imaged lumbar spine. The overlying soft tissue s are within normal limits. Small phleboliths are noted in the pelvis. IMPRESSION: No acute bony abnormality is identified. Electronically signed by: Daniel Ward M.D. 07/18/2023 7:06 PM
[2023-07-18] MEDS ORDERED: ACETAMINOPHEN 325 MG TAB PO PRN (20:23)
[2023-07-18] MEDS ORDERED: FAMOTIDINE 20 MG TAB PO PRN (20:23)
--- OUTSIDE RECORDS SUMMARY | 2023-07-18 21:23 | External Medical Summary | Continuity of Care Document ---
Author Name Unknown Organization [facility] [address] [place] [id number] Care Team Providers Care Brim Pouncer Name Role Phone Evette Schuler Primary Care Physician [phone] Encounter [facility] [id number] Date(s): 06/06/23 - 06/06/23 [facility] [place] - [address], [address], [address] [place] [address] [phone] Encounter Diagnosis Ascending aortic aneurysm(Discharge Diagnosis) - 06/06/23 Hx of ascending aorta replacement(Discharge Diagnosis) - 06/06/23 Aortic stenosis with bicuspid valve(Discharge Diagnosis) - 06/06/23 S/P CABG x 2(Discharge Diagnosis) - 06/06/23 CAD (coronary artery disease), [place] coronary artery(Discharge Diagnosis) - 06/06/23 Hx of aortic valve replacement with tissue graft(Discharge Diagnosis) - 06/06/23 Hypertension with heart disease(Discharge Diagnosis) - 06/06/23 Mixed hyperlipidemia(Discharge Diagnosis) - 06/06/23 Discharge Disposition: Home or Self Care Attending Physician: MD Carmen, Kaceychepe Fraga Referring Physician: MD Elissa, Bartolo Allergies, Adverse Reactions, Alerts No Known Allergies Immunizations Not Given Vaccine Date Status Refusal Reason pneumococcal 23-valent vaccine 03/10/21 Not Given Patient Refuses Medications allopurinol Start: 01/20/11 13:48:00, 300 mg =, PO, Daily Start Date: 01/20/11 Status: Ordered amLODIPine 5 mg oral tablet 1 tab, TAKE 1 TABLET BY MOUTH DAILY Start Date: 10/03/22 Status: Ordered ascorbic acid Start: 03/24/21 9:17:00 EDT, 250 mg =, PO, Daily Start Date: 03/24/21 Status: Ordered aspirin 81 mg oral delayed release tablet Start: 07/19/21 14:37:00 EST, 1 tab, PO, Daily Start Date: 07/19/21 Status: Ordered atorvastatin Start: 12/23/20 13:17:00 EDT, 80 mg =, PO, Daily Start Date: 12/23/20 Status: Ordered calcitriol 0.25 mcg oral capsule Start: 02/14/23 16:35:00 EDT, 1 cap, PO, qMonWedFri, Disp# 39 cap, Refills: 3, Pharmacy: [facility]/pharmacy #[id number] Start Date: 02/14/23 Stop Date: 02/09/24 Status: Ordered escitalopram 10 mg oral tablet Start: 11/30/21 9:06:00 EDT, 1 tab, PO, Daily Start Date: 11/30/21 Status: Ordered famotidine Start: 03/29/21 8:45:00 EDT, 1 tab, PO, prn Start Date: 03/29/21 Status: Ordered ferrous sulfate 325 mg (65 mg elemental iron) oral delayed release tablet Start: 03/24/21 9:17:00 EDT, 1 tab, PO, Daily Start Date: 03/24/21 Status: Ordered losartan 50 mg oral tablet Start: 09/14/22 10:21:00 EST, 1 tab, PO, bid Start Date: 09/14/22 Status: Ordered propranolol 40 mg oral tablet Start: 06/05/23 12:38:00 EDT, 1 tab, PO, bid Start Date: 06/05/23 Status: Ordered unknown medication Start: 06/14/22 10:53:00 EDT, See Instructions, magnesium supplement daily but dosage unkonwn Start Date: 06/14/22 Status: Ordered Vitamin B12 Start: 08/09/18 9:01:00 EST, 1 tab, PO, Daily Start Date: 08/09/18 Status: Ordered Vitamin C 250 mg oral tablet Start: 06/05/23 12:37:00 EDT, 1 tab, PO, Daily Start Date: 06/05/23 Status: Ordered Mental Status 06/05/23 Barriers to Learning one year None evide nt Mandatory Health Literacy Documentation Yes Health Literacy Communication Barriers N ever Primary Language [place] Leone[place] Problem List Condition Confirmation Course Effective Dates Status Health Status Informant Actinic keratosis Confirmed Active Ascending aortic aneurysm Confirmed Active Aortic regurgitation Confirmed Active (aortic stenosis) Confirmed Active Aortic stenosis with bicuspid valve Confirmed Active Atrial fibrillation Confirmed Active BCC (basal cell carcinoma of skin) Confirmed Active CAD (coronary artery disease) Confirmed Active Carotid stenosis Confirmed Active Chest pain Confirmed Active Cholecystectomy Confirmed Active Chronic kidney disease, stage 3b Confirmed Active CAD (coronary artery disease), [place] coronary artery Confirmed Active Dyslipidemia Confirmed Active Elevated cholesterol Confirmed Active H/O heart valve replacement with bioprosthetic valve Confirmed Active Hx of ascending aorta replacement Confirmed Active Hypertension with heart disease Confirmed Active S/P CABG x 2 Confirmed Active History of malignant neoplasm of skin Confirmed Active Hx of aortic valve replacement with tissue graft Confirmed Active Hypercalcemia Confirmed Active Hypertension Confirmed Active Hypertension Confirmed Active HTN (hypertension) Confirmed Active LA Confirmed Active Mixed hyperlipidemia Confirmed Active Oral surgery Confirmed Active Pre-op exam Confirmed Active Proteinuria Confirmed Active Renal insufficiency Confirmed Active Carotid stenosis, right Confirmed Active Secondary hyperparathyroidism Confirmed Active Diagnosis Diagnosis Type Effective Dates Health Status Clinical Service Informant CAD (coronary artery disease), [place] coronary artery Discharge Diagnosis 06/06/23 Hx of ascending aorta replacement Discharge Diagnosis 06/06/23 Aortic stenosis with bicuspid valve Discharge Diagnosis 06/06/23 Ascending aortic aneurysm Discharge Diagnosis 06/06/23 Hypertension with heart disease Discharge Diagnosis 06/06/23 S/P CABG x 2 Discharge Diagnosis 06/06/23 Hx of aortic valve replacement with tissue graft Discharge Diagnosis 06/06/23 Mixed hyperlipidemia Discharge Diagnosis 06/06/23 Procedures Procedure Date Related Diagnosis Body Site Status Replacement of valved cardiac conduit 2021 Completed Cardiac catheterization 2020 C ompleted Inguinal hernia 2015 [facility] ed CABG x 1 - Coronary artery b ypass graft x 1 2010 Completed Parathyroidectomy 2010 [facility] ed Spinal fusion 2010 Completed Cholecystectomy 1999 Completed excision right ear, BCC site 2 1999 Completed 1right side 2BCC site Social History Social History Type Response Smoking Status Never smoked cigaret erwin Sex Male Implantable Device List Procedure Provider Procedure Date Device Type Site Unknown Unknown 03/09/21 Unknown Unknown Device Identifier Serial Number Lot or Batch Number Manufacturing Date Expiration Date Distinct Identification Code MRI Safety Implantable Status Assigning Authority Unknown Unknown [id number] Unknown 02/23/23 Unknown Unknown Active Unknown Unknown Unknown N/A Unknown 08/02/23 Unknown Unknown Active Unkn own Patient Care team information Care Team Personnel Name: SONIYA Yi Mayeen R Position: Nurse Pract - CT Surgery Member Role: Lifetime Relationship Address: Address: [address] [place] [address] [place] [address] [place] Name: MD Ganga, Evette Nascimento Position: Referring Member Role: Primary Care Provider Address: Address: [facility] [address] [facility] [address] [place] [address] [place] Name: Valerie Hurt Francis Position: Pharmacist Schedule II Member Role: Pharmacy - Lifetime Address: Address: [facility] [address] [place] [address] [place] Name: Valerie May Blaine Position: Pharmacist Member Role: Pharmacy - Lifetime Name: MD Ayush, Vinita Position: Physician - CT Surgery Member Role: Lifetime Relationship Address: Address: [address] [place] [address] [place] Name: IVETT Negron Lynn Position: Physician Nurse Infection Control Exempt - Vasc Surg Member Role: Lifetime Relationship Address: Address: [address] [facility] [address] [place] [address] [place] Name: Valerie Rosales Paula Position: Pharmacist Member Role: Pharmacy - Lifetime Address: Address: [facility] [address] [place] [address] [place] Care Team Related Persons Name: ENE BLANCHARD Address: home [address] [facility] [phone] Name: ENE BLANCHARD Address: home [address] [place], [place] [phone] Name: ENE BLANCHARD Address: home [address] [facility] [place] [id number] Name: MEI DOUGLASS Address: home [address] [facility] [place] [phone] Name: KARO DOUGLASS Address: home [address] [facility] [place] [address]
--- OUTSIDE RECORDS SUMMARY | 2023-07-18 21:23 | External Medical Summary | Continuity of Care Document ---
Author Name Unknown Organization [facility] [address] Address [address] [place], [place] [id number] Care Team Providers Care Daycare Teacher Name Role Phone Melquiadesnel Evette Nascimento Primary Care Physician [phone] [id number]12/23 - 06/12/23 [facility] [address] [facility] [address] [place], [place] [phone] Encounter Diagnosis Chronic kidney disease, stage 3b(Final) - Secondary hyperparathyroidism of renal origin(Final) - Discharge Disposition: Home or Self Care Attending Physician: MD Adler Umar Referring Physician: MD Adler Umar Allergies, Adverse Reactions, Alerts No Known Allergies [...] Start: 02/14/23 16:35:00 EDT, 1 cap, PO, qMonWeSyl, Disp# 39 cap, Refills: 3, Pharmacy: [facility]/pharmacy #[id number] Start Date: 02/14/23 Stop Date: [...] PO, Daily Start Date: 06/05/23 Status: Ordered Problem List Condition Confirmation Course Effective Dates [...] 3b Confirmed Active CAD (coronary artery disease), [place] coronary artery Confirmed Active Dyslipidemia Confirmed Active [...] Hypertension Confirmed Active HTN (hypertension) Confirmed Active [place] Confirmed Active Mixed hyperlipidemia Confirmed Active Oral surgery Confirmed Active Pre-op exam Confirmed Active Proteinuria Confirmed Active Renal insufficiency Confirmed Active Carotid stenosis, right Confirmed Active Secondary hyperparathyroidism Confirmed Active Procedures Procedure Date Related Diagnosis Body Site Status Replacement of valved cardiac conduit 2021 Completed Cardiac catheterization 2020 C ompleted Inguinal hernia 2015 Complet ed CABG x 1 - Coronary artery b ypass graft x 1 2010 Completed Parathyroidectomy 2010 Complet ed Spinal fusion 2010 Completed Cholecystectomy 1999 Completed excision right ear, BCC site 2 1999 Completed 1right side 2BCC site Results Laboratory List Name Date Complete Blood Count w Differential (CBC ,DIFFH) 06/12/23 Nephrology Panel (NEPHROLOGY PANEL) 05/27 03/18 Parathyroid Hormone, Intact (PTH, INTACT ) 06/12/23 Protein/Creatinine Ratio, Urine (UR PROT /CREAT RATIO) 06/12/23 Uric Acid Level (URIC ACID) 06/12/23 Urine Analysis w/ Reflexed Microscopic. (URINE W/REFLEX MICR) 06/12/23 Vitamin D, 25-Hydroxy Level, Total (25-H YDROXY VITAMIN D) 06/12/23 Most recent to oldest [Reference Range]: 1 eGFR CKD-EPI [>60 mL/min/1.73 m2] 30 mL/ min/1.73 m2 1 *LOW* (06/12/23 9:27 AM) Vitamin D, 25-Hydroxy [30-100 ng/mL] 31 ng/mL 2 (06/12/23 9:27 AM) Estimated CrCl 25.03 mL/min (06/12/23 10:15 AM) Prot/Cret (u) 0.63 (06/12/23 9:27 AM) MPV [9.0-12.2 fL] 9.9 fL (06/12/23 9:27 AM) Immature Gran% 0.1 % (06/12/23 9:27 AM) Neut% 61.0 % (06/12/23 9:27 AM) Lymph% 28.1 % (06/12/23 9:27 AM) Bond% 8.1 % (06/12/23 9:27 AM) Baso% 0.3 % (06/12/23 9:27 AM) Eos% 2.4 % (06/12/23 9:27 AM) Immat Gran, Abs [0-0.4 K/uL] 0.01 K/uL 3 (06/12/23 9:27 AM) Neut, Abs [2.0-7.7 K/uL] 4.50 K/uL (06/12/23 9: AM) Lymph, Abs [1.0-3.4 K/uL] 2.08 K/uL (06/12/23 9:27 AM) Bond, Abs [0-1.0 K/uL] 0.60 K/uL (06/12/23 9:27 AM) Baso, Abs [0-0.1 K/uL] 0.02 K/uL (06/12/23 9:27 AM) Eos, Abs [0-0.5 K/uL] 0.18 K/uL (06/12/23: AM) Type of Diff: AUTO *Unknown* (06/12/23: AM) RDW [11.5-14.2 %] 14.8 % *HI* (06/12/23: AM) Protein (u) ran [<26 mg/dL] 112 mg/dL *HI* (06/12/23: AM) Anion Gap [5-14 mmol/L] 8 mmol/L (06/12/23: AM) Alb [3.5-5.0 g/dL] 4.2 g/dL (06/12/23: AM) Bact (u) [NONE-NONE] FEW 4 *Abnormal* (06/12/23: AM) Bili (u) [NEG] NEGATIVE *Unknown* (06/12/23: AM) BUN [7-20 mg/dL] 33 mg/dL *HI* (06/12/23:27 AM) Ca [8.4-10.2 mg/dL] 10.3 mg/dL *HI* (06/12/23: AM) Cl- [96-107 mmol/L] 107 mmol/L (06/12/23: AM) HCO3 [22-30 mmol/L] 27 mmol/L (06/12/23 9: AM) Cret [0.70-1.30 mg/dL] 2.20 mg/dL *HI* (06/12/23 AM) Glu [74-106 mg/dL] 94 mg/dL (06/12/23: AM) Hct [39-48 %] 40.3 % (06/12/23 AM) Hgb [13.0-17.0 g/dL] 13.3 g/dL (06/12/23 AM) PTH Intact [15.0-65.0 pg/mL] 119.3 pg/mL *HI* (06/12/23 AM) K [3.5-5.1 mmol/L] 4.4 mmol/L (06/12/23: AM) Ketones [NEG mg/dL] NEGATIVE mg/dL (06/12/23 AM) Leuk Est [NEG] NEGATIVE 5 *Unknown* (06/12/23 AM) MCH [28-33 pg] 30.9 pg (06/12/23 AM) MCHC [32-36 g/dL] 33.0 g/dL (06/12/23: AM) MCV [81-96 fL] 93.7 fL (06/12/23: AM) Na [137-145 mmol/L] 142 mmol/L (06/12/23 AM) Nitrite (u) [NEG] NEGATIVE *Unknown* (06/12/23 AM) PO4 [2.5-4.5 mg/dL] 3.3 mg/dL (06/12/23: AM) Plts [150-350 K/uL] 153 K/uL (06/12/23 AM) RBC [4.40-5.60 M/uL] 4.30 M/uL *LOW* (06/12/23 AM) Appear (u) CLEAR *Unknown* (06/12/23 AM) Color (u) YELLOW *Unknown* (06/12/23 AM) Creat (u) 176.74 mg/dL 6 (06/12/23: AM) Glu (u) [NEG mg/dL] NEGATIVE mg/dL (06/12/23: AM) Hgb (u) [NEG] TRACE *Abnormal* (10/17/23 9:27 AM) pH (u) [4.5-8.0 unit] 6.0 unit (06/12/23 9:27 AM) Prot (u) [NEG mg/dL] 100 mg/dL *Abnormal* (06/12/23 9:27 AM) RBC (u) [0-4 /HPF] 0-4 /HPF (06/12/23 9:27 AM) Uric Acid [3.5-8.5 mg/dL] 3.7 mg/dL 7 (06/12/23 9:27 AM) Urobili [0.1-1.0 EU/dL] 0.2 EU/dL (06/12/23 9:27 AM) SG [1.005-1.030] 1.020 (06/12/23 9:27 AM) WBC (u) [0-4 /HPF] 0-4 /HPF (06/12/23 9:27 AM) WBC [4.0-10.4 K/uL] 7.39 K/uL (06/12/23 9:27 AM) 1Result Comment: Testing Performed By: Dept of Pathology [facility] ER[facility]ichael Ludwig, [address] [place] [address], [place] [address] 2Result Comment: Deficiency: <20 ng/mL Insufficiency: 21-29 ng/mL Sufficiency: 30-100 ng/mL Potenial Toxicity: >150 ng/mL 3Result Comment: Testing Performed By: Dept of Pathology [facility] ERmichael [address] [place] [address] 4Result Comment: Testing Performed By: Dept of Pathology [facility] Soren Ludwig[address] [place] [address] 5Result Comment: Testing Performed By: Dept of Pathology [facility] ER[facility]ichael Ludwig[address] [place] [address] 6Result Comment: Reference Range for Random Urine Not Established. 7Result Comment: Testing Performed By: Dept of Pathology [facility] Soren [address] [place] [address] Social History Social History Type Response Smoking Status Never smoked cigaret erwin Sex Male Implantable Device List Procedure Provider Procedure Date Device Type Site Unknown Unknown 03/09/21 Unknown Unknown Device Identifier Serial Number Lot or Batch Number Manufacturing Date Expiration Date Distinct Identification Code MRI Safety Implantable Status Assigning Authority Unknown Unknown [id number] Unknown 02/23/23 Unknown Unknown Active Unknown Unknown Unknown N/A Unknown 08/02/23 Unknown Unknown Active Unkn own Patient Care team information Care Team Personnel Name: SONIYA Yi Cynlouise Olivares Position: Nurse Pract - CT Surgery Member Role: Lifetime Relationship Address: Address: [address] [facility] [address] [place] [address] [place] Name: MD Ganga, Evette Nascimento Position: Referring Member Role: Primary Care Provider Address: Address: [facility] Internal Medicine [address] [facility], [address] [place] [address] [place] Name: Valerie Hurt Francis Position: Pharmacist Schedule II Member Role: Pharmacy - Lifetime Address: Address: [facility] [address] [place] [address] [place] Name: Valerie May Blaine Position: Pharmacist Member Role: Pharmacy - Lifetime Name: MD Peacock Balakrishnan Position: Physician - CT Surgery Member Role: Lifetime Relationship Address: Address: [address] [place] [address] [place] Name: IVETT Negron Lynn Position: Physician Tube Trailer Filler Exempt - Vasc Surg Member Role: Lifetime Relationship Address: Address: [address] [place] [address] 1 [place] [address] [place] Name: Valerie Rosales Paula Position: Pharmacist Member Role: Pharmacy - Lifetime Address: Address: [facility] [address] [place] [address] [place] Care Team Related Persons Name: ENE BLANCHARD Address: home [address] [facility] [id number] Name: ENE BLANCHARD Address: home [address] [place], [place] [phone] Name: ENE BLANCHARD Address: home [address] [place], [place] [phone] Name: MEI DOUGLASS Address: home [address] [place], [place] [phone] Name: KARO DOUGLASS Address: home [address] [place] [address]
--- OUTSIDE RECORDS SUMMARY | 2023-07-18 21:23 | External Medical Summary | Continuity of Care Document ---
Author Name Unknown Organization [facility] [address] [id number] Care Team Providers Care Acid Recovery Operator Name Role Phone Evette Schuler Primary Care Physician [phone] [id number] Date(s): 06/19/23 - 06/19/23 [facility] [address] [facility] [address] [place] [address] [place] [address] Encounter Diagnosis Chronic kidney disease, stage 3b(Discharge Diagnosis) - 06/19/23 Hypertension(Discharge Diagnosis) - 06/19/23 Hypercalcemia(Discharge Diagnosis) - 06/19/23 Secondary hyperparathyroidism(Discharge Diagnosis) - 06/19/23 Discharge Disposition: Home or Self Care Attending Physician: MD Vitor, [facility] Allergies, Adverse Reactions, Alerts No Known Allergies [...] Ordered calcitriol 0.25 mcg oral capsule Start: 06/19/23 10:43:00 EDT, 1 cap, PO, qMonFri, Disp# 26 cap, Refills: 3, other Start Date: 06/19/23 Stop Date: 06/13/24 Status: Ordered escitalopram 10 mg oral tablet [...] Start Date: 06/05/23 Status: Ordered Mental Status 06/19/23 Mandatory Health Literacy Documentation Yes Health Literacy Communication Barriers N ever Primary Language Nauruan Problem List Condition Confirmation Course Effective Dates [...] 3b Confirmed Active CAD (coronary artery disease), [place] coronary artery Confirmed Active Dyslipidemia Confirmed Active [...] Hypertension Confirmed Active HTN (hypertension) Confirmed Active [place] Confirmed Active Mixed hyperlipidemia Confirmed Active Oral surgery Confirmed Active Pre-op exam Confirmed Active Proteinuria Confirmed Active Renal insufficiency Confirmed Active Carotid stenosis, right Confirmed Active Secondary hyperparathyroidism Confirmed Active Diagnosis Diagnosis Type Effective Dates Health Status Clinical Service Informant Chronic kidney disease, stage 3b Discharge Diagnosis 06/19/23 Hypertension Discharge Diagnosis 06/19/23 Hypercalcemia Discharge Diagnosis 06/19/23 Secondary hyperparathyroidism Discharge Diagnosis 06/19/23 Procedures Procedure Date Related Diagnosis Body Site Status Replacement of valved cardiac conduit 2021 Completed Cardiac catheterization 2020 C ompleted Inguinal hernia 2015 [facility] ed CABG x 1 - Coronary artery b ypass graft x 1 2010 Completed Parathyroidectomy 2010 [facility] ed Spinal fusion 2010 Completed Cholecystectomy 1999 Completed excision right ear, BCC site 2 1999 Completed 1right side 2BCC site Vital Signs Most recent to oldest [Reference Range]: 1 Patient Weight 84.8 kg (06/19/23 10:38 AM) Temperature [36.5-37.9 DegC] 36.8 DegC (06/19/23 10:38 AM) Heart Rate 54 bpm (06/19/23 10:38 AM) Respiratory Rate 16 br/min (06/19/23 10:38 AM) Blood Pressure 159/79mmHg (06/19/23 10:38 AM) Cuff Pulse Pressure 80 mmHg (06/19/23 10:38 AM) BP Location # 1 Left Arm (06/19/23 10:38 AM) Social History Social History Type Response Smoking Status Never smoked cigaret erwin Sex Male Implantable Device List Procedure Provider Procedure Date Device Type Site Unknown Unknown 03/09/21 Unknown Unknown Device Identifier Serial Number Lot or Batch Number Manufacturing Date Expiration Date Distinct Identification Code MRI Safety Implantable Status Assigning Authority Unknown Unknown [id number] Unknown 02/23/23 Unknown Unknown Active Unknown Unknown Unknown N/A Unknown 08/02/23 Unknown Unknown Active Unkn own Patient Care team information Care Team Personnel Name: SONIYA Yi Mayeen R Position: Nurse Pract - CT Surgery Member Role: Lifetime Relationship Address: Address: [address] [place] [address] [place] [address] [place] Name: MD Ganga, Evette Nascimento Position: Referring Member Role: Primary Care Provider Address: Address: [facility] [address] [facility], [address] [place] [address] [place] Name: Valerie Hurt Francis Position: Pharmacist Schedule II Member Role: Pharmacy - Lifetime Address: Address: [facility] [address] [place] [address] [place] Name: Valerie May Blaine Position: Pharmacist Member Role: Pharmacy - Lifetime Name: MD Peacock Balakrishnan Position: Physician - CT Surgery Member Role: Lifetime Relationship Address: Address: [address] [place] [address] [place] Name: IVETT Negron Lynn Position: Physician Athletic Coordinator Exempt - Vasc Surg Member Role: Lifetime Relationship Address: Address: [address] [place] [address], [place] [address] [place] Name: Valerie Rosales Paula Position: Pharmacist Member Role: Pharmacy - Lifetime Address: Address: [facility] [address] [place] [address] [place] Care Team Related Persons Name: ENE BLANCHARD Address: home [address] [place], [place] [phone] Name: ENE BLANCHARD Address: home [address] [facility] [place] [phone] Name: ENE BLANCHARD Address: home [address] [facility] [place], [phone] Name: MEI DOUGLASS Address: home [address] [facility] [place] [phone] Name: KARO DOUGLASS Address: home [address] [place] [address]
--- OUTSIDE RECORDS SUMMARY | 2023-07-18 21:24 | External Medical Summary | Continuity of Care Document ---
Author Name Unknown Organization [facility] Brittany Fraga [address] [facility] [address] [id number] Care Team Providers Care Beater Room Supervisor Name Role Phone Evette Schuler Primary Care Physician [phone] [id number] Date[facility]s): 04/03/23 - 04/03/23 [facility] [address] [facility] 30 [facility], [facility] [address], [address] [phone] Encounter Diagnosis OM (onychomycosis)(Discharge Diagnosis) - 04/03/23 Peripheral artery disease(Discharge Diagnosis) - 04/03/23 Discharge Disposition: Home or Self Care Attending Physician: PRISCILA Montenegro Nell V Referring Physician: MD Ganga, Evette Nascimento Allergies, Adverse Reactions, Alerts No Known Allergies [...] qMonWedFri, Disp# 39 cap, Refills: 3, Pharmacy: [facility]/pharmacy #[id number] Start Date: 02/14/23 Stop Date: 02/09/24 Status: [...] bid Start Date: 09/14/22 Status: Ordered propranolol Start: 12/26/22 9:26:00 EDT, 120 mg =, PO, Daily Start Date: 12/26/22 Status: Ordered unknown medication Start: 06/14/22 10:53:00 EDT, See Instructions, magnesium supplement daily but dosage unkonwn Start Date: 06/14/22 Status: Ordered Vitamin B12 Start: 08/09/18 9:01:00 EST, 1 tab, PO, Daily Start Date: 08/09/18 Status: Ordered Mental Status 04/03/23 Barriers to Learning one year None evide nt Mandatory Health Literacy Documentation Yes Health Literacy Communication Barriers N ever Primary Language Palestinian Problem List Condition Confirmation Course Effective Dates Status Health Status Informant Actinic keratosis Confirmed Active Aortic regurgitation Confirmed Active (aortic stenosis) Confirmed Active Atrial fibrillation Confirmed Active BCC (basal cell carcinoma of skin) Confirmed Active CAD (coronary artery disease) Confirmed Active Carotid stenosis Confirmed Active Chest pain Confirmed Active Cholecystectomy Confirmed Active Chronic kidney disease, stage 3b Confirmed Active Dyslipidemia Confirmed Active Elevated cholesterol Confirmed Active H/O heart valve replacement with bioprosthetic valve Confirmed Active History of malignant neoplasm of skin Confirmed Active Hypercalcemia Confirmed Active Hypertension Confirmed Active Hypertension Confirmed Active HTN (hypertension) Confirmed Active [place] Confirmed Active Oral surgery Confirmed Active Pre-op exam Confirmed Active Proteinuria Confirmed Active Renal insufficiency Confirmed Active Carotid stenosis, right Confirmed Active Secondary hyperparathyroidism Confirmed Active Diagnosis Diagnosis Type Effective Dates Health Status Clinical Service Informant Peripheral artery disease Discharge Diagnosis 04/03/23 OM (onychomycosis) Discharge Diagnosis 04/03/23 Procedures Procedure Date Related Diagnosis Body Site [...] Safety Implantable Status Assigning Authority Unknown Unknown [id number] Unknown 02/23/23 Unknown Unknown Active Unknown Unknown Unknown N/A Unknown 08/02/23 Unknown Unknown Active Unkn own Patient Care team information Care Team Personnel Name: SONIYA Yi Mayeen R Position: Nurse Pract - CT Surgery Member Role: Lifetime Relationship Address: Address: [address] [place] [address] [place] Name: MD Ganga, Evette Nascimento Position: Referring Member Role: Primary Care Provider Address: [place] [facility] [address] [address] [place] Name: Valerie Hurt Francis Position: Pharmacist Schedule II Member Role: Pharmacy - Lifetime Address: Address: [facility] [address] [place] [address] [place] Name: Valerie May Blaine Position: Pharmacist Member Role: Pharmacy - Lifetime Name: MD Peacock Balakrishnan Position: Physician - CT Surgery Member Role: Lifetime Relationship Address: Address: [address] [place] [address] [place] Name: IVETT Negron Lynn Position: Physician Cardiac Catheterization Technologist Exempt - Vasc Surg Member Role: Lifetime Relationship Address: Address: [address] [place] [address] [place] Name: Valerie Rosales Paula Position: Pharmacist Member Role: Pharmacy - Lifetime Address: Address: [address] [address] [place] Care Team Related Persons Name: ENE BLANCHARD Address: home [address] [facility], [phone] Name: ENE BLANCHARD Address: home [address] [facility] [place] [phone] Name: ENE BLANCHARD Address: home [address] [facility] [phone] Name: MEI DOUGLASS Address: home [address] [facility] [phone] Name: KARO DOUGLASS Address: home [address] [place] [facility] [place] [address]
[2023-07-18 21:52] LABS: C Reactive Protein 1.61 mg/dl (0-0.5)
[2023-07-19] MEDS: PROPRANOLOL HCL 20 MG TAB PO SCH ×3 (00:45→22:31)
[2023-07-19] MEDS: HEPARIN SOD 5,000 UNIT/0.5 ML VIAL SQ SCH ×4 (00:46→22:30)
[2023-07-19] MEDS: ATORVASTATIN 40 MG TAB PO SCH ×2 (00:46→22:30)
[2023-07-19 04:51] LABS: Basophils # (auto) 0.04 K/uL (0.00-0.20); Basophils % (auto) 0.5 %; Eosinophils # (auto) 0.15 K/uL (0.00-0.50); Eosinophils % (auto) 1.9 %; Hematocrit (blood only) 38.1 % (42.0-52.0); Hemoglobin 13.1 g/dl (14.0-18.0); Immature Granulocytes # (auto) 0.02 K/uL (0.01-0.20); Immature Granulocytes % (auto) 0.2 %; Lymphocytes # (auto) 1.52 K/uL (1.20-3.40); Lymphocytes % (auto) 18.9 %; Mean Corpuscular Hemoglobin 31.1 pg (25.0-34.0); Mean Corpuscular Hgb Conc 34.4 g/dL (32.0-36.0); Mean Corpuscular Volume 90.5 fL (80.0-100.0); Monocytes # (auto) 1.19 K/uL (0.11-0.59); Monocytes % (auto) 14.8 %; Neutrophils # (auto) 5.14 K/uL (1.40-6.50); Neutrophils % (auto) 63.7 %; Platelet Count 134 K/uL (130-400); RDW Coefficient of Variation 14.5 % (11.5-14.5); RDW Standard Deviation 47.9 fL (36.4-46.3); Red Blood Count 4.21 M/uL (4.70-6.10); White Blood Count 8.06 K/ul (4.8-10.8)
[2023-07-19 05:04] LABS: BUN Creatinine Ratio 11.1 (10-20); C Reactive Protein 2.03 mg/dl (0-0.5); Calcium 10.1 mg/dl (8.6-10.3); Creatinine Clr Calc Pharmacy 32.7 ml/min; Est GFR (African American) 36.2 ml/min; Est GFR (Non-African American) 31.2 ml/min; Phosphorus 2.5 mg/dl (2.5-4.9); Potassium 3.9 mmol/L (3.5-5.1)
[2023-07-19] MEDS: CYANOCOBALAMIN (B-12) 500 MCG TABLET PO SCH (08:41)
[2023-07-19] MEDS: ASCORBIC ACID 500 MG TAB PO SCH (08:41)
[2023-07-19] MEDS: ASPIRIN 81 MG ECTAB PO SCH (08:41)
[2023-07-19] MEDS: MAGNESIUM OXIDE 400 MG TAB PO SCH (08:42)
[2023-07-19] MEDS: allopurinoL 300 MG TAB PO SCH (08:42)
[2023-07-19] MEDS: ESCITALOPRAM OXALATE 10 MG TAB PO SCH (08:42)
[2023-07-19] MEDS: FERROUS SULFATE 325 MG TAB PO SCH (08:42)
[2023-07-19] MEDS: amLODIPine BESYLATE 5 MG TAB PO SCH (08:42)
[2023-07-19 09:59] LABS: Magnesium 1.8 mg/dl (1.7-2.4)
--- NOTE | 2023-07-19 12:19 | Hospitalist Progress Note ---
Date of Service July 19, 2023 Assessment & Plan (1) COVID-19: Plan: Lyle is a 77-year-old male with a past medical history of CKD, aortic valve replacement, complex sleep apnea, carotid stenosis, hypertension, peripheral neuropathy, depression, essential tremor, and severe peripheral neuropathy with foot drop, and cognitive impairment with no acute changes on outpatient MRI but with small vessel ischemic changes General atrophy and ex vacuo ventriculomegaly noted and additional to an old lacunar infarct, who presents with weakness causing his home needs to exceed he care ability of his family with 3 days of COVID symptoms and he was COVID-positive on admission. Acute weakness, suspect 2/2 COVID without hypoxia 3 days of COVID symptoms, COVID-positive on admission No hypoxia. Steroids and remdesivir are not indicated. CRP elevated. No urinary symptoms, UA w/o leuk esterace or nitrites No chest pain, high sensitive troponin 30.3 repeat at 32 today. Suspect demand with poor intake, continue trending -PT/OT consulted, appreciate recs, suspect need for SNF vs Rehab (2) CAD (coronary artery disease): Plan: CAD/CABG/AVR History of two-vessel bypass graft in 2020 History of bioprosthetic AVR History of ascending aorta replacement with Gelweave graft. Follows as outpatient with stable interval CTAs last 03/30/2023 Troponin trended, suspect demand. No clinical symptoms of ACS. EKG without acute ischemic change No evidence of acute CHF. Last EF 55-60% 202122. Grade 2 diastolic dysfunction. Continue aspirin and statin. Losartan on hold Patient is on SGLT2, no history of DM last A1c normal. BSG on BMP daily, no indication for SSI/DM2 diet at this time (3) Rhabdomyolysis: Plan: Mild rhabdomyolysis with CK of 741 in the setting of stasis and difficulty ambulating likely 2/2 COVID Gentle fluids as needed, cautious aggressive caution aggressive fluids and fluid overload with history of grade 2 diastolic CHF. Hold IVF for leg edema/hypoxia. Chest x-ray is without any evidence of pulmonary edema (4) CKD (chronic kidney disease) stage 3, GFR 30-59 ml/min: Plan: CKD Baseline creatinine appears approximately 1.61.86, although has been as high as 2.52.67 in the recent past, does not meet [place] criteria for RANI Trend daily Received 500 cc NSS in the ER. Will defer additional fluids as phosphate repletion comes in a large volume of fluid as well. No evidence of hypoxia or CHF; (5) Dementia: Plan: Cognitive decline, good cognition today With history of gradual cognitive decline, small vessel disease, and ex vacuo change Fall precautions Plan Chronic stable problems GERD: Famotidine 20 mg daily as needed Gout: Continue allopurinol Complex sleep apnea: CPAP nightly DVT prophylaxis: Heparin Disposition: Medical telemetry for troponin and cardiac trend, once trops stabilize, may got to med/surg Diet: Heart healthy CODE STATUS: Full per pt and family Admission and Anticipated Discharge Date Admission Date: July 18, 2023 Supervising Physician Co-Signing Physician Notes I personally examined the patient and verified all callaway points of history and exam, discussed case, and agree with decision making with Dr Harris feeling a little better can't drop O2. did eat a little. chronic constipation vitals noted nad heent nc at mmm lungs diminished without much adventitious sounds failure to thrive - multifactorial -covid - doesn't really appear septic/viral acutely - doubt remdesivir would be of much benefit. but with O2 requirement likely would benefit from steroids -dehydration/acute malnutrition from poor PO intake - was given IV fluids, PO intake improving a little -constipation - miralax PT/OT eval and treat, likely to need rehab heparin for DVT proph otherwise as above Subjective Patient seen at bedside this morning with in the room. Seems to be having progressive weakness over the past 24 to 48 hours with mild cold-like symptoms. It seems also had similar symptoms over the past weekend but hers are resolved. She did not test for COVID at home. Patient overall feels fine today but just is sleepy and weak. Denies any shortness of breath, chest pain, headache, nausea, or vomiting. No other complaints at this time. Review of Systems Review of Systems: All systems reviewed & are unremarkable except as noted in HPI & below Physical Exam Constitutional: well nourished and + frail appearing Eyes: + anicteric sclerae Neck: trachea midline, no thyromegaly Respiratory: normal respiratory effort, lungs clear to auscultation Cardiovascular: Rate/Rhythm: regular rate and regular rhythm Heart Sounds: no murmur Gastrointestinal (Abdomen): normal bowel sounds, soft, nontender, no hepatosplenomegaly Musculoskeletal: Head/Neck/Chest: normocephalic and head atraumatic Skin: no rashes, warm and dry Neurologic: moves all extremities Psychiatric: A+Ox3, euthymic affect Results & Data Results & Data Vital Signs (Past 12 Hours) Vital Signs Pulse Pulse Resp BP Pulse Ox Pulse Ox O2 Del Method 07/19/23 07:47 57 L 07/19/23 07:29 59 L 16 99 Nasal Cannula 07/19/23 07:29 99 07/19/23 07:29 97 Nasal Cannula 07/19/23 05:28 62 16 137/80 90 Room Air O2 Del Method O2 Flow Rate O2 Flow Rate 07/19/23 07:47 07/19/23 07:29 2 07/19/23 07:29 Nasal Cannula 2 07/19/23 07:29 2 07/19/23 05:28 (4) CKD (chronic kidney disease) stage 3, GFR 30-59 ml/min Chronic kidney disease stage 3 subtype: unspecified whether 3a or 3b Qualified Code(s): N18.30 - Chronic kidney disease, stage 3 unspecified (5) Dementia Dementia behavioral or psychological symptom: without behavioral, psychotic, or mood disturbance or anxiety Dementia severity: unspecified severity Dementia type: unspecified type Qualified Code(s): F03.90 - Unspecified dementia, unspecified severity, without behavioral disturbance, psychotic disturbance, mood disturbance, and anxiety
--- NOTE | 2023-07-19 12:50 | Electrocardiogram Report ---
Test Reason : Blood Pressure : / mmHG Vent. Rate : 065 BPM Atrial Rate : 065 BPM P-R Int : 228 ms QRS Dur : 090 ms QT Int : 422 ms P-R-T Axes : 054 048 081 degrees QTc Int : 438 ms Sinus rhythm with 1st degree A-V block Possible Left atrial enlargement Septal infarct (cited on or before 15-JUL-2021) Abnormal ECG When compared with ECG of 17-OCT-2021 11:24, [place] interval has increased Nonspecific T wave abnormality, improved in Inferior leads Confirmed by Pieter Reed ([id number] on 07/19/2023 12:50:08 PM Referred By: REFERRED SELF Confirmed By:Pieter Reed
[2023-07-19] MEDS ORDERED: DEXAMETHASONE SOD INJ 4 MG/ML VIAL IV STA (14:19)
--- NOTE | 2023-07-19 16:17 | Billing Data ---
Date of Service July 19, 2023 Coding Level of Care Code 58850 SUB INP/OBS CARE MIN
[2023-07-19] MEDS: POLYETHYLENE (MIRALAX) 17 GM PACK PO SCH (22:31)
[2023-07-20] MEDS: HEPARIN SOD 5,000 UNIT/0.5 ML VIAL SQ SCH ×3 (05:39→20:46)
[2023-07-20 06:42] LABS: Basophils # (auto) 0.01 K/uL (0.00-0.20); Basophils % (auto) 0.1 %; Hematocrit (blood only) 39.5 % (42.0-52.0); Hemoglobin 13.2 g/dl (14.0-18.0); Immature Granulocytes # (auto) 0.03 K/uL (0.01-0.20); Immature Granulocytes % (auto) 0.4 %; Lymphocytes # (auto) 0.96 K/uL (1.20-3.40); Lymphocytes % (auto) 13.6 %; Mean Corpuscular Hemoglobin 30.6 pg (25.0-34.0); Mean Corpuscular Hgb Conc 33.4 g/dL (32.0-36.0); Mean Corpuscular Volume 91.6 fL (80.0-100.0); Mean Platelet Volume 9.5 fL (9.4-12.4); Monocytes # (auto) 0.27 K/uL (0.11-0.59); Monocytes % (auto) 3.8 %; Neutrophils # (auto) 5.77 K/uL (1.40-6.50); Neutrophils % (auto) 82.1 %; Platelet Count 135 K/uL (130-400); RDW Coefficient of Variation 14.2 % (11.5-14.5); RDW Standard Deviation 47.7 fL (36.4-46.3); Red Blood Count 4.31 M/uL (4.70-6.10); White Blood Count 7.04 K/ul (4.8-10.8)
[2023-07-20 07:12] LABS: BUN Creatinine Ratio 12.9 (10-20); Creatinine Clr Calc Pharmacy 31.7 ml/min; Est GFR (African American) 35.6 ml/min; Est GFR (Non-African American) 30.7 ml/min; Potassium 4.3 mmol/L (3.5-5.1)
[2023-07-20 07:12] LABS: Appearance Urine Clear (Clear); Bacteria Urine Automated Negative (Negative); Bilirubin Urine Negative (Negative); Blood Urine Trace (Negative); Cast Urine Automated 0 /lpf (0-5); Color Urine Yellow; Glucose Urine UA Negative (Negative); Ketones Urine Negative (Negative); Leukocyte Esterase Urine Negative (Negative); Nitrite Urine Negative (Negative); Protein Urine 1+ (Negative); RBC Urine Automated 0-4 /hpf (0-4); Specific Gravity Urine 1.009 (1.000-1.030); Urobilinogen Urine Negative (Negative)
--- NOTE | 2023-07-20 07:58 | Hospitalist Progress Note ---
Date of Service July 20, 2023 Assessment & Plan (1) COVID-19: Plan: Lyle is a 77-year-old male with a past medical history of CKD, aortic valve replacement, complex sleep apnea, carotid stenosis, hypertension, peripheral neuropathy, depression, essential tremor, and severe peripheral neuropathy with foot drop, and cognitive impairment with no acute changes on outpatient MRI but with small vessel ischemic changes General atrophy and ex vacuo ventriculomegaly noted and additional to an old lacunar infarct, who presents with weakness causing his home needs to exceed he care ability of his family with 3 days of COVID symptoms and he was COVID-positive on admission. Acute weakness, suspect 2/2 COVID without hypoxia - 2L oxygen requirement, continue 6mg Decadron daily, defer remdesivir No urinary symptoms, UA w/o leuk esterace or nitrites No chest pain, high sensitive troponin slightly elevated, trended down. Suspect secondary to demand -PT/OT consulted, appreciate recs, suspect need for SNF vs Rehab (2) CAD (coronary artery disease): Plan: CAD/CABG/AVR History of two-vessel bypass graft in 2020 History of bioprosthetic AVR History of ascending aorta replacement with Gelweave graft. Follows as outpatient with stable interval CTAs last 03/30/2023 Troponin trended, suspect demand. No clinical symptoms of ACS. EKG without acute ischemic change No evidence of acute CHF. Last EF 55-60% 202122. Grade 2 diastolic dysfunction. Continue aspirin and statin. Losartan on hold Patient is on SGLT2, no history of DM last A1c normal. BSG on BMP daily, no indication for SSI/DM2 diet at this time (3) Rhabdomyolysis: Plan: Mild rhabdomyolysis with CK of 741 in the setting of stasis and difficulty ambulating likely 2/2 COVID Gentle fluids as needed, cautious aggressive caution aggressive fluids and fluid overload with history of grade 2 diastolic CHF. Hold IVF for leg edema/hypoxia. Chest x-ray is without any evidence of pulmonary edema (4) CKD (chronic kidney disease) stage 3, GFR 30-59 ml/min: Plan: CKD Baseline creatinine appears approximately 1.61.86, although has been as high as 2.52.67 in the recent past, does not meet [place] criteria for RANI Trend daily Will defer additional fluids for now. Creatine stable at 2 (5) Dementia: Plan: With history of gradual cognitive decline, small vessel disease, and ex vacuo change Fall precautions Plan Chronic stable problems GERD: Famotidine 20 mg daily as needed Gout: Continue allopurinol Complex sleep apnea: CPAP nightly DVT prophylaxis: Heparin Diet: Heart healthy CODE STATUS: Full Admission and Anticipated Discharge Date Admission Date: July 18, 2023 Supervising Physician Co-Signing Physician Notes I personally examined the patient and verified all callaway points of history and exam, discussed case, and agree with decision making with Dr Palafox Doing better overall, still no significant shortness of breath but unable to wean oxygen, had bowel movement and appetite has improved. Was able to walk to and from the bathroom better than he or his seems to expected! vitals noted nad heent nc at mmm breathing unlabored no accessory muscle use good effort. Skin shows no rashes no pallor or icterus. failure to thrive - multifactorial -covid - doesn't really appear septic/viral acutely - doubt remdesivir would be of much benefit, but with O2 requirement likely would benefit from steroidscontinue dexamethasone -dehydration/acute malnutrition from poor PO intake - was given IV fluids, PO intake improving a good bit so further IV fluids did not appear necessary at this time -constipation - miralaxhad bowel movement, continue given that it sounds like he runs chronically constipated PT/OT eval and treat, likely to need rehab, but await PT/OT assessments given that his physical status seems to be better than I would have expected already heparin for DVT proph otherwise as above Subjective Doing well this morning. Finishing breakfast when I saw him this morning. No complaints. Review of Systems Review of Systems: As per above Physical Exam Physical Exam: Constitutional: well-appearing, no acute distress HEENT: NCAT, no conjunctival injection CV: regular rhythm, no murmur appreciated, extremities well-perfused, no LE edema Resp: CTABL, no wheezes/rales/rhonchi appreciated, no increased work of breathing MSK: no gross deformities appreciated Skin: warm, dry, no rash appreciated Neuro: alert, oriented, no focal neurologic deficit appreciated Results & Data Results & Data Vital Signs (Past 12 Hours) Vital Signs Temp Pulse Pulse Resp BP BP Pulse Ox 07/20/23 07:50 36.7 C 56 L 16 129/74 97 07/20/23 07:42 54 L 07/20/23 04:25 07/20/23 03:12 36.5 C 58 L 18 122/75 96 07/19/23 23:35 36.7 C 61 18 151/70 H 96 07/19/23 21:34 61 07/19/23 20:29 63 07/19/23 20:06 36.8 C 70 18 144/77 H 97 O2 Del Method O2 Flow Rate 07/20/23 07:50 Nasal Cannula 2 07/20/23 07:42 07/20/23 04:25 Nasal Cannula 2 07/20/23 03:12 Room Air 07/19/23 23:35 Nasal Cannula 2 07/19/23 21:34 07/19/23 20:29 07/19/23 20:06 Nasal Cannula 2 Resident Activity Tracking Resident Involvement: Resident Care Provided Care Provided: Adult Hospital Medicine (4) CKD (chronic kidney disease) stage 3, GFR 30-59 ml/min Chronic kidney disease stage 3 subtype: unspecified whether 3a or 3b Qualified Code(s): N18.30 - Chronic kidney disease, stage 3 unspecified (5) Dementia Dementia behavioral or psychological symptom: without behavioral, psychotic, or mood disturbance or anxiety Dementia severity: unspecified severity Cesar ia type: unspecified type Qualified Code(s): F03.90 - Unspecified dementia, unspecified severity, without behavioral disturbance, psychotic disturbance, mood disturbance, and anxiety
[2023-07-20] MEDS: ASCORBIC ACID 500 MG TAB PO SCH (09:12)
[2023-07-20] MEDS: ASPIRIN 81 MG ECTAB PO SCH (09:12)
[2023-07-20] MEDS: amLODIPine BESYLATE 5 MG TAB PO SCH (09:13)
[2023-07-20] MEDS: FERROUS SULFATE 325 MG TAB PO SCH (09:14)
[2023-07-20] MEDS: ESCITALOPRAM OXALATE 10 MG TAB PO SCH (09:14)
[2023-07-20] MEDS: MAGNESIUM OXIDE 400 MG TAB PO SCH (09:14)
[2023-07-20] MEDS: CYANOCOBALAMIN (B-12) 500 MCG TABLET PO SCH (09:15)
[2023-07-20] MEDS: CALCITRIOL 0.25 MCG CAPSULE PO SCH (09:15)
[2023-07-20] MEDS: allopurinoL 300 MG TAB PO SCH (09:15)
[2023-07-20] MEDS: POLYETHYLENE (MIRALAX) 17 GM PACK PO SCH ×2 (09:16→20:46)
[2023-07-20] MEDS: PROPRANOLOL HCL 20 MG TAB PO SCH ×2 (09:16→20:46)
[2023-07-20] MEDS: dexAMETHasone 1 MG TAB PO SCH (11:08)
--- NOTE | 2023-07-20 13:12 | Billing Data ---
Date of Service July 20, 2023 Coding Level of Care Code 07557 SUB INP/OBS CARE
[2023-07-20] MEDS: ATORVASTATIN 40 MG TAB PO SCH (20:47)
[2023-07-21] MEDS: HEPARIN SOD 5,000 UNIT/0.5 ML VIAL SQ SCH ×3 (05:41→21:56)
--- NOTE | 2023-07-21 07:04 | Hospitalist Progress Note ---
Date of Service July 21, 2023 Assessment & Plan (1) COVID-19: Plan: Lyle is a 77-year-old male with a past medical history of CKD, aortic valve replacement, complex sleep apnea, carotid stenosis, hypertension, peripheral neuropathy, depression, essential tremor, and severe peripheral neuropathy with foot drop, and cognitive impairment with no acute changes on outpatient MRI but with small vessel ischemic changes General atrophy and ex vacuo ventriculomegaly noted and additional to an old lacunar infarct, who presents with weakness tested positive for COVID on admission. Acute weakness, suspect 2/2 COVID without hypoxia - 2L oxygen requirement, continue 6mg Decadron daily, defer remdesivir - Leukocytosis to 15 in the setting of steriods No urinary symptoms, UA w/o leuk esterace or nitrites No chest pain, high sensitive troponin slightly elevated, trended down. Suspect secondary to demand -PT/OT consulted, PT recommending rehab (2) CAD (coronary artery disease): Plan: CAD/CABG/AVR History of two-vessel bypass graft in 2020 History of bioprosthetic AVR History of ascending aorta replacement with Gelweave graft. Follows as outpatient with stable interval CTAs last 03/30/2023 Troponin trended, suspect demand. No clinical symptoms of ACS. EKG without acute ischemic change No evidence of acute CHF. Last EF 55-60% 202122. Grade 2 diastolic dysfunction. Continue aspirin and statin. Losartan on hold Patient is on SGLT2, no history of DM last A1c normal. BSG on BMP daily, no indication for SSI/DM2 diet at this time (3) Rhabdomyolysis: Plan: Mild rhabdomyolysis with CK of 741 in the setting of stasis and difficulty ambulating likely 2/2 COVID Gentle fluids as needed, cautious aggressive caution aggressive fluids and fluid overload with history of grade 2 diastolic CHF. Hold IVF for leg edema/hypoxia. Chest x-ray is without any evidence of pulmonary edema (4) CKD (chronic kidney disease) stage 3, GFR 30-59 ml/min: Plan: CKD Baseline creatinine appears approximately 1.61.86, although has been as high as 2.52.67 in the recent past, does not meet [place] criteria for RANI Trend daily Will defer additional fluids for now. Creatine stable at 2 (5) Dementia: Plan: With history of gradual cognitive decline, small vessel disease, and ex vacuo change Fall precautions Plan Chronic stable problems GERD: Famotidine 20 mg daily as needed Gout: Continue allopurinol Complex sleep apnea: CPAP nightly DVT prophylaxis: Heparin Diet: Heart healthy CODE STATUS: Full Admission and Anticipated Discharge Date Admission Date: July 18, 2023 Supervising Physician Co-Signing Physician Notes I personally examined the patient and verified all callaway points of history and exam, discussed case, and agree with decision making with Dr Palafox Physically continues to do reasonably wellnow off of oxygen. notes much more confused. Awaiting rehab. vitals noted nad heent nc at mmm breathing unlabored no accessory muscle use g ood effort. Skin shows no rashes no pallor or icterus. failure to thrive - multifactorial -covid - doesn't really appear septic/viral acutely - doubt remdesivir would be of much benefit, but with O2 requirement he fit for having a benefit from steroidshas improved on dexamethasonewhile his delirium is likely multifactorial, certainly steroids can be contributory, will drop his dexamethasone from 6 mg down to 2 tomorrow, and if his breathing remains stable or improving, hopefully can DC entirely from there. -dehydration/acute malnutrition from poor PO intake - was given IV fluids, PO intake improving a good bit so further IV fluids did not appear necessary at this time -constipation - miralaxhad bowel movement, continue given that it sounds like he runs chronically constipated Deliriumappears to be multifactorial as wellbasically from all of the above, extensive discussion with patient/ on the nature of delirium and the natural history of it. Supportive care and safe environment. Otherwise as above PT/OT eval and treat, for rehab once approved/once bed available heparin for DVT proph otherwise as above Subjective Pt seen at bedside this morning. Oriented to person and place. Per nursing has been more confused and has been getting up out of bed and going into hallway. Review of Systems Review of Systems: As per above Physical Exam Physical Exam: Constitutional: well-appearing, no acute distress HEENT: NCAT, no conjunctival injection CV: regular rhythm, no murmur appreciated, extremities well-perfused, no LE edema Resp: CTABL, no wheezes/rales/rhonchi appreciated, no increased work of breathing MSK: no gross deformities appreciated Skin: warm, dry, no rash appreciated Neuro: alert, oriented, no focal neurologic deficit appreciated Results & Data Results & Data Vital Signs (Past 12 Hours) Vital Signs Temp Pulse Pulse Resp BP Pulse Ox O2 Del Method 07/21/23 03:14 36.6 C 57 L 18 133/70 95 Nasal Cannula 07/21/23 00:29 Nasal Cannula 07/21/23 00:23 61 07/20/23 23:03 36.7 C 63 18 136/75 97 Nasal Cannula 07/20/23 19:15 36.7 C 62 18 144/83 H 99 Nasal Cannula O2 Flow Rate 07/21/23 03:14 2 07/21/23 00:29 2 07/21/23 00:23 07/20/23 23:03 2 07/20/23 19:15 2 Resident Activity Tracking Resident Involvement: Resident Care Provided Care Provided: Adult Hospital Medicine (4) CKD (chronic kidney disease) stage 3, GFR 30-59 ml/min Chronic kidney disease stage 3 subtype: unspecified whether 3a or 3b Qualified Code(s): N18.30 - Chronic kidney disease, stage 3 unspecified (5) Dementia Dementia behavioral or psychological symptom: without behavioral, psychotic, or mood disturbance or anxiety Dementia severity: unspecified severity Dementia type: unspecified type Qualified Code(s): F03.90 - Unspecified dementia, unspecified severity, without behavioral disturbance, psychotic disturbance, mood disturbance, and anxiety
[2023-07-21 08:50] LABS: Basophils # (auto) 0.02 K/uL (0.00-0.20); Basophils % (auto) 0.1 %; Hematocrit (blood only) 41.4 % (42.0-52.0); Hemoglobin 14.2 g/dl (14.0-18.0); Immature Granulocytes # (auto) 0.11 K/uL (0.01-0.20); Immature Granulocytes % (auto) 0.7 %; Lymphocytes # (auto) 1.45 K/uL (1.20-3.40); Lymphocytes % (auto) 9.7 %; Mean Corpuscular Hemoglobin 31.3 pg (25.0-34.0); Mean Corpuscular Hgb Conc 34.3 g/dL (32.0-36.0); Mean Corpuscular Volume 91.2 fL (80.0-100.0); Monocytes % (auto) 4.7 %; Neutrophils # (auto) 12.74 K/uL (1.40-6.50); Neutrophils % (auto) 84.8 %; Platelet Count 168 K/uL (130-400); RDW Coefficient of Variation 14.3 % (11.5-14.5); RDW Standard Deviation 47.7 fL (36.4-46.3); Red Blood Count 4.54 M/uL (4.70-6.10); White Blood Count 15.02 K/ul (4.8-10.8)
[2023-07-21 09:07] LABS: BUN Creatinine Ratio 21.7 (10-20); Calcium 10.5 mg/dl (8.6-10.3); Creatinine Clr Calc Pharmacy 30.8 ml/min; Est GFR (African American) 34.5 ml/min; Est GFR (Non-African American) 29.8 ml/min; Potassium 4.3 mmol/L (3.5-5.1)
[2023-07-21] MEDS: PROPRANOLOL HCL 20 MG TAB PO SCH ×2 (09:53→21:35)
[2023-07-21] MEDS: ASCORBIC ACID 500 MG TAB PO SCH (09:54)
[2023-07-21] MEDS: ESCITALOPRAM OXALATE 10 MG TAB PO SCH (09:54)
[2023-07-21] MEDS: amLODIPine BESYLATE 5 MG TAB PO SCH (09:55)
[2023-07-21] MEDS: MAGNESIUM OXIDE 400 MG TAB PO SCH (09:55)
[2023-07-21] MEDS: ASPIRIN 81 MG ECTAB PO SCH (09:55)
[2023-07-21] MEDS: CYANOCOBALAMIN (B-12) 500 MCG TABLET PO SCH (09:55)
[2023-07-21] MEDS: allopurinoL 300 MG TAB PO SCH (09:55)
[2023-07-21] MEDS: dexAMETHasone 1 MG TAB PO SCH (09:56)
[2023-07-21] MEDS: FERROUS SULFATE 325 MG TAB PO SCH (09:56)
[2023-07-21] MEDS: POLYETHYLENE (MIRALAX) 17 GM PACK PO SCH ×2 (10:09→19:09)
--- NOTE | 2023-07-21 13:24 | Billing Data ---
Date of Service July 21, 2023 Coding Level of Care Code 04068 SUB INP/OBS CARE MIN
[2023-07-21] MEDS: MELATONIN 3 MG TAB PO PRN (21:34)
[2023-07-21] MEDS: ATORVASTATIN 40 MG TAB PO SCH (21:34)
--- NOTE | 2023-07-22 06:48 | Hospitalist Progress Note ---
Date of Service July 22, 2023 Assessment & Plan (1) COVID-19: Plan: Lyle is a 77-year-old male with a past medical history of CKD, aortic valve replacement, complex sleep apnea, carotid stenosis, hypertension, peripheral neuropathy, depression, essential tremor, and severe peripheral neuropathy with foot drop, and cognitive impairment with no acute changes on outpatient MRI but with small vessel ischemic changes General atrophy and ex vacuo ventriculomegaly noted and additional to an old lacunar infarct, who presents with weakness tested positive for COVID on admission. Acute weakness, suspect 2/2 COVID without hypoxia - Hypoxia resolved; reduce Decadron from 6mg to 2mg, if tolerates well could consider d/c tomorrow (07/23) No urinary symptoms, UA w/o leuk esterace or nitrites No chest pain, high sensitive troponin slightly elevated, trended down. Suspect secondary to demand -PT/OT consulted, PT recommending rehab (2) CAD (coronary artery disease): Plan: CAD/CABG/AVR History of two-vessel bypass graft in 2020 History of bioprosthetic AVR History of ascending aorta replacement with Gelweave graft. Follows as outpatient with stable interval CTAs last 03/30/2023 Troponin trended, suspect demand. No clinical symptoms of ACS. EKG without acute ischemic change No evidence of acute CHF. Last EF 55-60% 202122. Grade 2 diastolic dysfunction. Continue aspirin and statin. Losartan on hold Patient is on SGLT2, no history of DM last A1c normal. No indication for SSI/DM2 diet at this time (3) Rhabdomyolysis: Plan: Mild rhabdomyolysis with CK of 741 in the setting of stasis and difficulty ambulating likely 2/2 COVID Gentle fluids as needed, cautious aggressive caution aggressive fluids and fluid overload with history of grade 2 diastolic CHF. Hold IVF for leg edema/hypoxia. Chest x-ray is without any evidence of pulmonary edema (4) CKD (chronic kidney disease) stage 3, GFR 30-59 ml/min: Plan: CKD Baseline creatinine appears approximately 1.61.86, although has been as high as 2.52.67 in the recent past Trend daily Slight bump in creatine from 2 to 2.18; no IV site in place, encourage PO hydration (5) Dementia: Plan: With history of gradual cognitive decline, small vessel disease, and ex vacuo change Fall precautions Plan Chronic stable problems GERD: Famotidine 20 mg daily as needed Gout: Continue allopurinol Complex sleep apnea: CPAP nightly DVT prophylaxis: Heparin Diet: Heart healthy CODE STATUS: Full Admission and Anticipated Discharge Date Admission Date: July 21, 2023 Supervising Physician Co-Signing Physician Notes I personally examined the patient and verified all callaway points of history and exam, discussed case, and agree with decision making with Dr Palafox No new complaints/no new problems. presentupdated. Discussed slight bump in creatinine, encouraged p.o. fluids. vitals noted nad heent nc at mmm breathing unlabored no accessory muscle use good effort. Skin shows no rashes no pallor or icterus. failure to thrive - multifactorial -covid - doesn't really appear septic/viral acutely - doubt remdesivir would be of much benefit, but with O2 requirement he fit for having a benefit from steroidshas improved on dexamethasonewhile his delirium is likely multifactorial, certainly steroids can be contributory, wean dexamethasone quickly, and if his breathing remains stable or improving, hopefully can DC entirely from there. -dehydration/acute malnutrition from poor PO intake -overall much improved, but encourage p.o. fluid intake -constipation - miralaxhad bowel movement, continue indefinitely for now given that it sounds like he runs chronically constipated Deliriumappears to be multifactorial as wellbasically from all of the above, extensive discussion with patient/ on the nature of delirium and the natural history of it. Supportive care and safe environment. Otherwise as above PT/OT eval and treat, for rehab once approved/once bed available heparin for DVT proph otherwise as above Subjective Pt seen bedside this morning. Doing well no complaints. On room air. Review of Systems Review of Systems: As per above Physical Exam Physical Exam: Constitutional: well-appearing, no acute distress HEENT: NCAT, no conjunctival injection CV: regular rhythm, no murmur appreciated, extremities well-perfused, no LE edema Resp: CTABL, no wheezes/rales/rhonchi appreciated, no increased work of breathing MSK: no gross deformities appreciated Skin: warm, dry, no rash appreciated Neuro: alert, oriented, no focal neurologic deficit appreciated Results & Data Results & Data Vital Signs (Past 12 Hours) Vital Signs Temp Pulse Resp BP Pulse Ox O2 Del Method 07/21/23 23:17 36.7 C 55 L 18 133/70 92 Room Air 07/21/23 19:53 36.7 C 56 L 18 145/75 H 95 Room Air Resident Activity Tracking Resident Involvement: Resident Care Provided Care Provided: Adult Hospital Medicine (4) CKD (chronic kidney disease) stage 3, GFR 30-59 ml/min Chronic kidney disease stage 3 subtype: unspecified whether 3a or 3b Qualified Code(s): N18.30 - Chronic kidney disease, stage 3 unspecified (5) Dementia Dementia behavioral or psychological symptom: without behavioral, psychotic, or mood disturbance or anxiety Dementia severity: unspecified severity Dementia type: unspecified type Qualified Code(s): F03.90 - Unspecified dementia, unspecified severity, without behavioral disturbance, psychotic disturbance, mood disturbance, and anxiety
[2023-07-22 06:58] LABS: Basophils # (auto) 0.01 K/uL (0.00-0.20); Basophils % (auto) 0.1 %; Hematocrit (blood only) 38.3 % (42.0-52.0); Hemoglobin 13.1 g/dl (14.0-18.0); Immature Granulocytes # (auto) 0.12 K/uL (0.01-0.20); Immature Granulocytes % (auto) 0.9 %; Lymphocytes # (auto) 1.41 K/uL (1.20-3.40); Lymphocytes % (auto) 10.9 %; Mean Corpuscular Hemoglobin 31.2 pg (25.0-34.0); Mean Corpuscular Hgb Conc 34.2 g/dL (32.0-36.0); Mean Corpuscular Volume 91.2 fL (80.0-100.0); Mean Platelet Volume 10.2 fL (9.4-12.4); Monocytes # (auto) 0.74 K/uL (0.11-0.59); Monocytes % (auto) 5.7 %; Neutrophils # (auto) 10.62 K/uL (1.40-6.50); Neutrophils % (auto) 82.4 %; Platelet Count 171 K/uL (130-400); RDW Coefficient of Variation 14.2 % (11.5-14.5); RDW Standard Deviation 47.7 fL (36.4-46.3)
[2023-07-22 07:13] LABS: BUN Creatinine Ratio 27.1 (10-20); Calcium 10.3 mg/dl (8.6-10.3); Creatinine Clr Calc Pharmacy 29.2 ml/min; Est GFR (African American) 32.4 ml/min; Potassium 4.6 mmol/L (3.5-5.1)
[2023-07-22] MEDS: dexAMETHasone 1 MG TAB PO SCH (09:28)
[2023-07-22] MEDS: CYANOCOBALAMIN (B-12) 500 MCG TABLET PO SCH (09:29)
[2023-07-22] MEDS: ASPIRIN 81 MG ECTAB PO SCH (09:29)
[2023-07-22] MEDS: FERROUS SULFATE 325 MG TAB PO SCH (09:29)
[2023-07-22] MEDS: allopurinoL 300 MG TAB PO SCH (09:30)
[2023-07-22] MEDS: amLODIPine BESYLATE 5 MG TAB PO SCH (09:30)
[2023-07-22] MEDS: ASCORBIC ACID 500 MG TAB PO SCH (09:31)
[2023-07-22] MEDS: ESCITALOPRAM OXALATE 10 MG TAB PO SCH (09:31)
[2023-07-22] MEDS: MAGNESIUM OXIDE 400 MG TAB PO SCH (09:32)
[2023-07-22] MEDS: HEPARIN SOD 5,000 UNIT/0.5 ML VIAL SQ SCH ×3 (09:32→21:24)
[2023-07-22] MEDS: POLYETHYLENE (MIRALAX) 17 GM PACK PO SCH ×2 (09:32→21:25)
[2023-07-22] MEDS: PROPRANOLOL HCL 20 MG TAB PO SCH ×2 (09:33→21:24)
--- NOTE | 2023-07-22 18:38 | Billing Data ---
Date of Service July 22, 2023 Coding Level of Care Code 38682 SUB INP/OBS CARE
[2023-07-22] MEDS: MELATONIN 3 MG TAB PO PRN (21:23)
[2023-07-22] MEDS: ATORVASTATIN 40 MG TAB PO SCH (21:25)
[2023-07-23] MEDS: HEPARIN SOD 5,000 UNIT/0.5 ML VIAL SQ SCH ×3 (05:15→20:29)
--- NOTE | 2023-07-23 07:08 | Hospitalist Progress Note ---
Date of Service July 23, 2023 Assessment & Plan (1) COVID-19: Plan: Lyle is a 77-year-old male with a past medical history of CKD, aortic valve replacement, complex sleep apnea, carotid stenosis, hypertension, peripheral neuropathy, depression, essential tremor, and severe peripheral neuropathy with foot drop, and cognitive impairment with no acute changes on outpatient MRI but with small vessel ischemic changes General atrophy and ex vacuo ventriculomegaly noted and additional to an old lacunar infarct, who presents with weakness tested positive for COVID on admission. Acute weakness, suspect 2/2 COVID without hypoxia - Hypoxia resolved;Decadron reduced from 6mg to 2mg, tolerating well plan to d/c No urinary symptoms, UA w/o leuk esterace or nitrites No chest pain, high sensitive troponin slightly elevated, trended down. Suspect secondary to demand -PT/OT consulted, PT recommending rehab (2) CAD (coronary artery disease): Plan: CAD/CABG/AVR History of two-vessel bypass graft in 2020 History of bioprosthetic AVR History of ascending aorta replacement with Gelweave graft. Follows as outpatient with stable interval CTAs last 03/30/2023 Troponin trended, suspect demand. No clinical symptoms of ACS. EKG without acute ischemic change No evidence of acute CHF. Last EF 55-60% 202122. Grade 2 diastolic dysfunction. Continue aspirin and statin. Losartan on hold Patient is on SGLT2, no history of DM last A1c normal. No indication for SSI/DM2 diet at this time (3) Rhabdomyolysis: Plan: Mild rhabdomyolysis with CK of 741 in the setting of stasis and difficulty ambulating likely 2/2 COVID Gentle fluids as needed, cautious aggressive caution aggressive fluids and fluid overload with history of grade 2 diastolic CHF. Hold IVF for leg edema/hypoxia. Chest x-ray is without any evidence of pulmonary edema (4) CKD (chronic kidney disease) stage 3, GFR 30-59 ml/min: Plan: CKD Baseline creatinine appears approximately 1.61.86, although has been as high as 2.52.67 in the recent past Trend daily creatine stable around 2; continue to encourage PO hydration, suspect mildly hypovolemic secondary to acute illness (5) Dementia: Plan: With history of gradual cognitive decline, small vessel disease, and ex vacuo change Fall precautions Plan Chronic stable problems GERD: Famotidine 20 mg daily as needed Gout: Continue allopurinol Complex sleep apnea: CPAP nightly DVT prophylaxis: Heparin Diet: Heart healthy CODE STATUS: Full Admission and Anticipated Discharge Date Admission Date: July 21, 2023 Supervising Physician Co-Signing Physician Notes I also saw the patient with Dr. Palafox and confirmed callaway portions of the history and physical examination. Agree with the impression and plan as noted in her documentation above. When seen this afternoon, is at bedside. Patient notes he is feeling better; agrees. Exam 149/88, 62, 20, 36.9, 94% on room air He talks in full sentences; no increased work of breathing appreciated Data WBC 12.95, hemoglobin 12.9 BUN 59, creatinine 2.08 Impression and plan COVID -maintaining appropriate oxygen saturations on room air; will discontinue dexamethasone, and this should further help his delirium Awaiting placement for acute rehabilitation when bed available Additional per resident documentation Subjective Pt seen bedside this morning. Doing well no complaints. On room air. was at bedside. Review of Systems Review of Systems: As per above Physical Exam Physical Exam: Constitutional: well-appearing, no acute distress HEENT: NCAT, no conjunctival injection CV: regular rhythm, no murmur appreciated, extremities well-perfused, no LE edema Resp: CTABL, no wheezes/rales/rhonchi appreciated, no increased work of breathing MSK: no gross deformities appreciated Skin: warm, dry, no rash appreciated Neuro: alert, oriented, no focal neurologic deficit appreciated Results & Data Results & Data Vital Signs (Past 12 Hours) Vital Signs Temp Pulse Resp BP Pulse Ox O2 Del Method 07/22/23 22:28 36.4 C L 57 L 18 150/78 H 96 Room Air 07/22/23 21:26 36.5 C 58 L 18 153/79 H 94 Room Air (4) CKD (chronic kidney disease) stage 3, GFR 30-59 ml/min Chronic kidney disease stage 3 subtype: unspecified whether 3a or 3b Qualified Code(s): N18.30 - Chronic kidney disease, stage 3 unspecified (5) Dementia Dementia behavioral or psychological symptom: without behavioral, psychotic, or mood disturbance or anxiety Dementia severity: unspecified severity Dementia type: unspecified type Qualified Code(s): F03.90 - Unspecified dementia, unspecified severity, without behavioral disturbance, psychotic disturbance, mood disturbance, and anxiety
[2023-07-23 08:05] LABS: Basophils # (auto) 0.03 K/uL (0.00-0.20); Basophils % (auto) 0.2 %; Hematocrit (blood only) 38.2 % (42.0-52.0); Hemoglobin 12.9 g/dl (14.0-18.0); Immature Granulocytes # (auto) 0.23 K/uL (0.01-0.20); Immature Granulocytes % (auto) 1.8 %; Lymphocytes # (auto) 1.45 K/uL (1.20-3.40); Lymphocytes % (auto) 11.2 %; Mean Corpuscular Hgb Conc 33.8 g/dL (32.0-36.0); Mean Corpuscular Volume 91.8 fL (80.0-100.0); Monocytes # (auto) 0.79 K/uL (0.11-0.59); Monocytes % (auto) 6.1 %; Neutrophils # (auto) 10.45 K/uL (1.40-6.50); Neutrophils % (auto) 80.7 %; Platelet Count 158 K/uL (130-400); RDW Standard Deviation 46.7 fL (36.4-46.3); Red Blood Count 4.16 M/uL (4.70-6.10); White Blood Count 12.95 K/ul (4.8-10.8)
[2023-07-23 08:20] LABS: BUN Creatinine Ratio 28.4 (10-20); Calcium 10.2 mg/dl (8.6-10.3); Creatinine Clr Calc Pharmacy 30.6 ml/min; Est GFR (African American) 34.3 ml/min; Est GFR (Non-African American) 29.6 ml/min; Potassium 4.7 mmol/L (3.5-5.1)
[2023-07-23] MEDS: CALCITRIOL 0.25 MCG CAPSULE PO SCH (08:27)
[2023-07-23] MEDS: amLODIPine BESYLATE 5 MG TAB PO SCH (08:27)
[2023-07-23] MEDS: ASPIRIN 81 MG ECTAB PO SCH (08:27)
[2023-07-23] MEDS: FERROUS SULFATE 325 MG TAB PO SCH (08:27)
[2023-07-23] MEDS: PROPRANOLOL HCL 20 MG TAB PO SCH ×2 (08:28→20:27)
[2023-07-23] MEDS: ASCORBIC ACID 500 MG TAB PO SCH (08:28)
[2023-07-23] MEDS: allopurinoL 300 MG TAB PO SCH (08:28)
[2023-07-23] MEDS: ESCITALOPRAM OXALATE 10 MG TAB PO SCH (08:28)
[2023-07-23] MEDS: MAGNESIUM OXIDE 400 MG TAB PO SCH (08:29)
[2023-07-23] MEDS: POLYETHYLENE (MIRALAX) 17 GM PACK PO SCH ×2 (08:29→20:27)
[2023-07-23] MEDS ORDERED: dexAMETHasone 1 MG TAB PO SCH (09:00)
[2023-07-23] MEDS: CYANOCOBALAMIN (B-12) 500 MCG TABLET PO SCH (13:11)
[2023-07-23] MEDS: ATORVASTATIN 40 MG TAB PO SCH (20:28)
[2023-07-23 23:36] VITALS: TEMP 98.4
[2023-07-24] MEDS: HEPARIN SOD 5,000 UNIT/0.5 ML VIAL SQ SCH ×3 (05:22→19:52)
--- NOTE | 2023-07-24 06:51 | Hospitalist Progress Note ---
Date of Service July 24, 2023 Assessment & Plan (1) COVID-19: Plan: Lyle is a 77-year-old male with a past medical history of CKD, aortic valve replacement, complex sleep apnea, carotid stenosis, hypertension, peripheral neuropathy, depression, essential tremor, and severe peripheral neuropathy with foot drop, and cognitive impairment with no acute changes on outpatient MRI but with small vessel ischemic changes General atrophy and ex vacuo ventriculomegaly noted and additional to an old lacunar infarct, who presents with weakness tested positive for COVID on admission. Acute weakness, suspect 2/2 COVID without hypoxia - Hypoxia resolved;Decadron stopped as he is no longer hypoxic No urinary symptoms, UA w/o leuk esterace or nitrites No chest pain, high sensitive troponin slightly elevated, trended down. Suspect secondary to demand -PT/OT consulted, PT recommending rehab (2) CAD (coronary artery disease): Plan: CAD/CABG/AVR History of two-vessel bypass graft in 2020 History of bioprosthetic AVR History of ascending aorta replacement with Gelweave graft. Follows as outpatient with stable interval CTAs last 03/30/2023 Troponin trended, suspect demand. No clinical symptoms of ACS. EKG without acute ischemic change No evidence of acute CHF. Last EF 55-60% 202122. Grade 2 diastolic dysfunction. Continue aspirin and statin. Losartan on hold Patient is on SGLT2, no history of DM last A1c normal. No indication for SSI/DM2 diet at this time (3) Rhabdomyolysis: Plan: Mild rhabdomyolysis with CK of 741 in the setting of stasis and difficulty ambulating likely 2/2 COVID Gentle fluids as needed, cautious aggressive caution aggressive fluids and fluid overload with history of grade 2 diastolic CHF. Hold IVF for leg edema/hypoxia. Chest x-ray is without any evidence of pulmonary edema (4) CKD (chronic kidney disease) stage 3, GFR 30-59 ml/min: Plan: CKD Baseline creatinine appears approximately 1.61.86, although has been as high as 2.52.67 in the recent past Trend daily creatine stable around 2; continue to encourage PO hydration, suspect mildly hypovolemic secondary to acute illness (5) Dementia: Plan: With history of gradual cognitive decline, small vessel disease, and ex vacuo change Fall precautions Plan Chronic stable problems GERD: Famotidine 20 mg daily as needed Gout: Continue allopurinol Complex sleep apnea: CPAP nightly DVT prophylaxis: Heparin Diet: Heart healthy CODE STATUS: Full Admission and Anticipated Discharge Date Admission Date: July 21, 2023 Supervising Physician Co-Signing Physician Notes Attending attestation Pt seen and examined in concert with Dr. Palafox. In agreement with the documented findings as noted in the resident documentation with any exceptions or additions as noted here. Reports approaching baseline though with ongoing fatigue. On examination, S1/S2 nl RRR no MCG. CTAB. Abd NT/ND BS+ve. VS reviewed. Data: WBC: 14.38, Hgb 12.9, Cr 2.09 COVID - doing well off dexamethasone and without acute delirium. Pending placement when bed available. Family expresses desire for [facility]. Else see resident documentation as noted. Subjective Lyle was doing well this morning. Denies upper respiratory symptoms. was at bedside this morning. She notes that first choice for rehab is [facility]. Review of Systems Review of Systems: As per above Physical Exam Physical Exam: Constitutional: well-appearing, no acute distress HEENT: NCAT, no conjunctival injection CV: regular rhythm, no murmur appreciated, extremities well-perfused Resp: CTABL, no wheezes/rales/rhonchi appreciated, no increased work of breathing MSK: no gross deformities appreciated Skin: warm, dry, no rash appreciated Neuro: alert, oriented, no focal neurologic deficit appreciated Results & Data Results & Data Vital Signs (Past 12 Hours) Vital Signs Temp Pulse Resp BP Pulse Ox O2 Del Method 07/23/23 23:36 36.9 C 63 14 127/76 94 Room Air 07/23/23 20:26 36.6 C 58 L 16 148/76 H 95 Room Air Resident Activity Tracking Resident Involvement: Resident Care Provided Care Provided: Adult Hospital Medicine (4) CKD (chronic kidney disease) stage 3, GFR 30-59 ml/min Chronic kidney disease stage 3 subtype: unspecified whether 3a or 3b Qualified Code(s): N18.30 - Chronic kidney disease, stage 3 unspecified (5) Dementia Dementia behavioral or psychological symptom: without behavioral, psychotic, or mood disturbance or anxiety Dementia severity: unspecified severity Dementia type: unspecified type Qualified Code(s): F03.90 - Unspecified dementia, unspecified severity, without behavioral disturbance, psychotic disturbance, mood disturbance, and anxiety
[2023-07-24 07:32] LABS: Basophils # (auto) 0.04 K/uL (0.00-0.20); Basophils % (auto) 0.3 %; Hematocrit (blood only) 38.1 % (42.0-52.0); Hemoglobin 12.9 g/dl (14.0-18.0); Immature Granulocytes # (auto) 0.46 K/uL (0.01-0.20); Immature Granulocytes % (auto) 3.2 %; Lymphocytes # (auto) 2.09 K/uL (1.20-3.40); Lymphocytes % (auto) 14.5 %; Mean Corpuscular Hemoglobin 30.8 pg (25.0-34.0); Mean Corpuscular Hgb Conc 33.9 g/dL (32.0-36.0); Mean Corpuscular Volume 90.9 fL (80.0-100.0); Mean Platelet Volume 10.3 fL (9.4-12.4); Monocytes # (auto) 1.32 K/uL (0.11-0.59); Monocytes % (auto) 9.2 %; Neutrophils # (auto) 10.47 K/uL (1.40-6.50); Neutrophils % (auto) 72.8 %; Platelet Count 182 K/uL (130-400); RDW Coefficient of Variation 13.8 % (11.5-14.5); RDW Standard Deviation 46.2 fL (36.4-46.3); Red Blood Count 4.19 M/uL (4.70-6.10); White Blood Count 14.38 K/ul (4.8-10.8)
[2023-07-24 07:53] LABS: BUN Creatinine Ratio 27.3 (10-20); Calcium 9.9 mg/dl (8.6-10.3); Creatinine Clr Calc Pharmacy 30.8 ml/min; Est GFR (African American) 34.1 ml/min; Est GFR (Non-African American) 29.4 ml/min; Potassium 4.6 mmol/L (3.5-5.1)
[2023-07-24] MEDS: POLYETHYLENE (MIRALAX) 17 GM PACK PO SCH ×2 (08:29→19:55)
[2023-07-24] MEDS: CYANOCOBALAMIN (B-12) 500 MCG TABLET PO SCH (09:05)
[2023-07-24] MEDS: PROPRANOLOL HCL 20 MG TAB PO SCH ×2 (09:05→19:54)
[2023-07-24] MEDS: MAGNESIUM OXIDE 400 MG TAB PO SCH (09:05)
[2023-07-24] MEDS: allopurinoL 300 MG TAB PO SCH (09:06)
[2023-07-24] MEDS: ESCITALOPRAM OXALATE 10 MG TAB PO SCH (09:06)
[2023-07-24] MEDS: ASPIRIN 81 MG ECTAB PO SCH (09:06)
[2023-07-24] MEDS: ASCORBIC ACID 500 MG TAB PO SCH (09:06)
[2023-07-24] MEDS: FERROUS SULFATE 325 MG TAB PO SCH (09:06)
[2023-07-24] MEDS: amLODIPine BESYLATE 5 MG TAB PO SCH (09:07)
[2023-07-24] MEDS: ATORVASTATIN 40 MG TAB PO SCH (19:54)
[2023-07-24] MEDS ORDERED: CALCIUM CARBONATE 500 MG CHEWABLE TAB PO PRN (23:10)
[2023-07-25] MEDS: HEPARIN SOD 5,000 UNIT/0.5 ML VIAL SQ SCH (05:59)
[2023-07-25 07:35] VITALS: BP 133/76; PULSE 56; RESP 14; O2SAT 95
--- NOTE | 2023-07-25 08:06 | Hospitalist Progress Note ---
Date of Service July 25, 2023 Assessment & Plan (1) COVID-19: Plan: Lyle is a 77-year-old male with a past medical history of CKD, aortic valve replacement, complex sleep apnea, carotid stenosis, hypertension, peripheral neuropathy, depression, essential tremor, and severe peripheral neuropathy with foot drop, and cognitive impairment with no acute changes on outpatient MRI but with small vessel ischemic changes General atrophy and ex vacuo ventriculomegaly noted and additional to an old lacunar infarct, who presents with weakness tested positive for COVID on admission. Acute weakness, suspect 2/2 COVID without hypoxia - Hypoxia resolved;Decadron stopped as he is no longer hypoxic No urinary symptoms, UA w/o leuk esterace or nitrites No chest pain, high sensitive troponin slightly elevated, trended down. Suspect secondary to demand -PT/OT consulted, PT recommending rehab (2) CAD (coronary artery disease): Plan: CAD/CABG/AVR History of two-vessel bypass graft in 2020 History of bioprosthetic AVR History of ascending aorta replacement with Gelweave graft. Follows as outpatient with stable interval CTAs last 03/30/2023 Troponin trended, suspect demand. No clinical symptoms of ACS. EKG without acute ischemic change No evidence of acute CHF. Last EF 55-60% 202122. Grade 2 diastolic dysfunction. Continue aspirin and statin. Losartan on hold Patient is on SGLT2, no history of DM last A1c normal. No indication for SSI/DM2 diet at this time (3) Rhabdomyolysis: Plan: Mild rhabdomyolysis with CK of 741 in the setting of stasis and difficulty ambulating likely 2/2 COVID Gentle fluids as needed, cautious aggressive caution aggressive fluids and fluid overload with history of grade 2 diastolic CHF. Hold IVF for leg edema/hypoxia. Chest x-ray is without any evidence of pulmonary edema (4) CKD (chronic kidney disease) stage 3, GFR 30-59 ml/min: Plan: CKD Baseline creatinine appears approximately 1.61.86, although has been as high as 2.52.67 in the recent past Trend daily creatine stable around 2; continue to encourage PO hydration, suspect mildly hypovolemic secondary to acute illness (5) Dementia: Plan: With history of gradual cognitive decline, small vessel disease, and ex vacuo change Fall precautions Plan Chronic stable problems GERD: Famotidine 20 mg daily as needed Gout: Continue allopurinol Complex sleep apnea: CPAP nightly DVT prophylaxis: Heparin Diet: Heart healthy CODE STATUS: Full Admission and Anticipated Discharge Date Admission Date: July 21, 2023 Review of Systems Review of Systems: As per above Physical Exam Physical Exam: Constitutional: well-appearing, no acute distress HEENT: NCAT, no conjunctival injection CV: regular rhythm, no murmur appreciated, extremities well-perfused Resp: CTABL, no wheezes/rales/rhonchi appreciated, no increased work of breathing MSK: no gross deformities appreciated Skin: warm, dry, no rash appreciated Neuro: alert, oriented, no focal neurologic deficit appreciated Results & Data Results & Data Vital Signs (Past 12 Hours) Vital Signs Temp Pulse Resp BP Pulse Ox O2 Del Method 07/25/23 07:34 36.9 C 56 L 14 133/76 95 Room Air 07/24/23 23:34 36.9 C 60 18 131/88 97 Room Air (4) CKD (chronic kidney disease) stage 3, GFR 30-59 ml/min Chronic kidney disease stage 3 subtype: unspecified whether 3a or 3b Qualified Code(s): N18.30 - Chronic kidney disease, stage 3 unspecified (5) Dementia Dementia behavioral or psychological symptom: without behavioral, psychotic, or mood disturbance or anxiety Dementia severity: unspecified severity Dementia type: unspecified type Qualified Code(s): F03.90 - Unspecified dementia, unspecified severity, without behavioral disturbance, psychotic disturbance, mood disturbance, and anxiety
[2023-07-25] MEDS: POLYETHYLENE (MIRALAX) 17 GM PACK PO SCH (10:21)
[2023-07-25] MEDS: ASPIRIN 81 MG ECTAB PO SCH (11:10)
[2023-07-25] MEDS: CYANOCOBALAMIN (B-12) 500 MCG TABLET PO SCH (11:11)
[2023-07-25] MEDS: PROPRANOLOL HCL 20 MG TAB PO SCH (11:11)
[2023-07-25] MEDS: amLODIPine BESYLATE 5 MG TAB PO SCH (11:11)
[2023-07-25] MEDS: MAGNESIUM OXIDE 400 MG TAB PO SCH (11:12)
[2023-07-25] MEDS: ASCORBIC ACID 500 MG TAB PO SCH (11:12)
[2023-07-25] MEDS: allopurinoL 300 MG TAB PO SCH (11:13)
[2023-07-25] MEDS: ESCITALOPRAM OXALATE 10 MG TAB PO SCH (11:13)
[2023-07-25] MEDS: FERROUS SULFATE 325 MG TAB PO SCH (11:13)
--- NOTE | 2023-07-25 14:43 | Discharge Summary ---
Date of Service July 25, 2023 Admission HPI Per Admitting Provider Dry nonproductive cough x3 days Today was so week he could not stand up to get to use his walker or go to the bathroom. Slid off toilet (did not hit his head) and has no leg strength. reports she had to use a blanket to drag him into the living room. Progressively weaker throughout the day, and then felt he was too weak for her to handle safetly at home and presented to the ER. 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 No chest pain or chest pressure. Reports' heart and blood pressure have been great, several med adjustments but doing well with these.;' ~3 days of dry cough. +runny nose. No nause or vomiting. No diarrhea No dysuria. No polyuria No fevers or chills. No night sweats Took all medications this morning. Medical History: Reviewed Medications: Reviewed Surgical History: Reviewed Family history: Reviewed Allergies: Reviewed Social History: No tobacco, etoh. Code Status: FUll Code Principal Diagnosis COVID Discharge Exam Constitutional: well-appearing, no acute distress HEENT: NCAT, no conjunctival injection CV: regular rhythm, no murmur appreciated, extremities well-perfused Resp: CTABL, no wheezes/rales/rhonchi appreciated, no increased work of breathing MSK: no gross deformities appreciated Skin: warm, dry, no rash appreciated Neuro: alert, oriented, no focal neurologic deficit appreciated Discharge Data Allergies Allergy/AdvReac Type Severity Reaction Status Date / Time No Known Allergies Allergy Verified 07/18/23 17:07 Consultations 07/18/23 18:08 ED Decision to Admit Stat Ordered Studies 07/18/23 16:25 CT head/brain wo con Stat Hospital Course (1) COVID-19: Lyle is a 77-year-old male with a past medical history of CKD, aortic valve replacement, complex sleep apnea, carotid stenosis, hypertension, peripheral neuropathy, depression, essential tremor, and severe peripheral neuropathy with foot drop, and cognitive impairment with no acute changes on outpatient MRI but with small vessel ischemic changes General atrophy and ex vacuo ventriculomegaly noted and additional to an old lacunar infarct, who presents with weakness tested positive for COVID on admission. COVID-19 Acute weakness, suspect 2/2 COVID - Required 2L oxygen at beginning of admission, was given Decadron x 4 days and hypoxia resolved -PT/OT consulted, PT recommending rehab, but insurance denies. declined SNF. Plan for home with home health. CAD (coronary artery disease): CAD/CABG/AVR History of two-vessel bypass graft in 2020 History of bioprosthetic AVR History of ascending aorta replacement with Gelweave graft. Follows as outpatient with stable interval CTAs last 03/30/2023 Troponin trended, suspect demand. No clinical symptoms of ACS. EKG without acute ischemic change No evidence of acute CHF. Last EF 55-60% 202122. Grade 2 diastolic dysfunction. Continue aspirin and statin. - Losartan on held for elevated creatine. Will resume at d/c as creatine is close to recent baseline. Would get repeat BMP in 1 week. Rhabdomyolysis: Mild rhabdomyolysis with CK of 741 in the setting of stasis and difficulty ambulating likely 2/2 COVID S/p IVF; resolved CKD (chronic kidney disease) stage 3, GFR 30-59 ml/min: CKD Baseline creatinine appears approximately 1.61.86, although has been as high as 2.52.67 in the recent past creatine stable around 2 - Would get repeat BMP in 1 week Dementia: With history of gradual cognitive decline, small vessel disease, and ex vacuo change (2) Rhabdomyolysis: (3) CAD (coronary artery disease): (4) Elevated CPK: (5) Hypophosphatemia: (6) Dementia: (7) Weakness: Total Time Total Time Spent Total Time Spent (In Minutes): See attending attestation Discharge Plan Discharge Items Patient Disposition: Home - Home Health Services Reason For Visit: WEAKNESS, COVID Discharge Diagnosis: COVID Activity: Per Instructions section Non-emergency contact: Primary Care Provider Call non-emergency contact if: you have any medication questions and your symptoms worsen Follow-up/Referrals: Evette Schuler MD [Primary Care Provider] - 08/01/23 10:45 am (With Stacie Noemy) Diet: Regular Addtl Attending Provider Instructions: You were admitted with COVID. We set up home health for you so that you can get home PT/OT to help build back some of your strength. We did not make any changes to your home mediations. We would like for you to follow up with your primary care doctor next week. You should get repeat labs at this visit. If you were to develop any increased shortness of breath or chest pain you should return to the ED. Pending Studies at Discharge: No Stand-Alone Forms: [facility], Smoking Cessation Medications and DC Order Prescriptions: Continued ascorbic acid (vitamin C) 250 mg tablet 250 mg PO DAILY allopurinol 300 mg tablet 300 mg PO DAILY Qty: 90 3RF amlodipine 5 mg tablet 5 mg PO DAILY Qty: 90 1RF atorvastatin 80 mg tablet 80 mg PO QPM Qty: 90 3RF escitalopram oxalate 10 mg tablet 10 mg PO DAILY Qty: 90 3RF calcitriol 0.25 mcg capsule 0.25 mcg PO 2XWK Qty: 90 3RF Rx Instructions: Mon, Fri dapagliflozin propanediol 10 mg tablet 10 mg PO DAILY Qty: 90 3RF magnesium oxide 400 mg magnesium tablet 400 mg PO DAILY ferrous sulfate 325 mg (65 mg iron) tablet,delayed release (DR/EC) 325 mg PO DAILY famotidine 20 mg tablet 20 mg PO DAILY PRN (Reason: heartburn) losartan 50 mg tablet 50 mg PO BID Qty: 180 3RF propranolol 40 mg tablet 40 mg PO BID Qty: 180 3RF aspirin 81 mg Tablet,Delayed Release (Dr/Ec) 81 mg PO DAILY cyanocobalamin (vitamin B-12) [Vitamin B-12] 1,000 mcg Tablet 1,000 mcg PO DAILY Discharge Orders: Discharge Order (Routine); Ordered 07/25/23 Ordered By: Ashley Aguilar/Other Patient Handouts: Fall Prevention Assessing Risk, Falls Prevent Adjust Living Space Admission Data Admit Date/Time: 07/21/23 12:48 Attending Provider: Hansel Humphrey Admit Provider: Iain Meyers Primary Care Provider: Evette Schuler Other Providers: [facility]; Iain Meyers; [facility],Referral Center; [facility],Home Healthcare Other Interventions: Discharge Summary Assessment (RN) Last Done: 07/25/23 15:36 Supervising Physician Co-Signing Physician Notes Attending Attestation I also saw the patient today and discussed the case with Dr. Palafox. Patient without complaint today. VS as noted. Adequate SPO2 on room air. No dyspnea, no cough. Seems to have fatigue, but nearing baseline/ Patient was denied acute rehabilitation, and patient/family declined option of PT at a SNF. was upset today with the hospital in that we could not get insurance approval for her 's acute rehabilitation. I appreciate her frustration. He has been approved for home services/therapy. COVID - doing well off dexamethasone without acute delirium. Additional per resindet documentation. Resident Activity Tracking Resident Involvement: Resident Care Provided Care Provided: Adult Hospital Medicine
== END 2023-07-25 16:09 | disposition home health service (06) | DRG 178 ==
LOC: ED 16:10 → EDINP 16:10 → SUATTDRO 18:46 → 2N 07-19 19:55 → SUATTDRO 07-21 12:48 → 3N 07-24 23:25
DX: M21.372 Foot drop, left foot; G62.9 Polyneuropathy, unspecified; F32.A Depression, unspecified; G25.0 Essential tremor; G47.39 Other sleep apnea; M10.9 Gout, unspecified; N18.30 Chronic kidney disease, stage 3 unspecified; F03.90 Unspecified dementia, unspecified severity, without behavioral disturbance, psychotic disturbance, mood disturbance, and anxiety; I44.0 Atrioventricular block, first degree; E83.39 Other disorders of phosphorus metabolism; R53.1 Weakness; R29.6 Repeated falls; M21.371 Foot drop, right foot; U07.1 COVID-19; K21.9 Gastro-esophageal reflux disease without esophagitis; Z95.2 Presence of prosthetic heart valve; E78.5 Hyperlipidemia, unspecified; Z95.1 Presence of aortocoronary bypass graft; I25.10 Atherosclerotic heart disease of native coronary artery without angina pectoris; I12.9 Hypertensive chronic kidney disease with stage 1 through stage 4 chronic kidney disease, or unspecified chronic kidney disease; M62.82 Rhabdomyolysis; I35.0 Nonrheumatic aortic (valve) stenosis